=== PATIENT | female | born 1970 | race Hispanic/Latino ===

== ENCOUNTER 2016-07-23 21:59 | Inpatient (IN) | payer OTHER ==
--- NOTE | 2016-07-23 22:37 | ED PDOC ---
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 Patient being followed by Dr. Finnegan podiatry; had MRI which showed torn ligaments and stress fracture, was placed in soft cast and given Percocet and prednisone for pain/swelling. Patient was instructed by Dr. Finnegan to removed soft case over the weekend because of swelling and increased pain; patient notes pain to have worsened since then; with associated redness. Denies fever, nausea/vomiting, chest pain, shortness of breath, palpitations, calf pain/swelling. <Hemalatha Hayward - Last Filed: 07/24/16 04:52> Time Seen by Provider: 07/23/16 22:25 Chief Complaint (Nursing): Lower Extremity Problem/Injury Past Medical History Vital Signs: Last Vital Signs Temp 99.9 F H 07/23/16 22:04 Pulse 97 H 07/23/16 22:04 Resp 07/23/16 22:04 BP 139/92 H 07/23/16 22:04 Pulse Ox 95 07/24/16 03:35 <Gianni Botello Y - Last Filed: 07/24/16 04:21> Reviewed: Historical Data, Nursing Documentation, Vital Signs Vital Signs: Last Vital Signs Temp 99.9 F H 07/23/16 22:04 Pulse 97 H 07/23/16 22:04 Resp 07/23/16 22:04 BP 139/92 H 07/23/16 22:04 Pulse Ox 95 07/23/16 22:04 - Medical History PMH: Hypothyroidism Other PMH: Sarpy's - Surgical History Other surgeries: right ACL repair. foot sx - Family History Family History: States: Unknown Family Hx - Living Arrangements Living Arrangements: With Family <Hemalatha Hayward - Last Filed: 07/24/16 04:52> - Home Medications Home Medications: Ambulatory Orders Medication Instructions Recorded Dexamethasone [Decadron] 1 mg PO DAILY 07/24/16 Fludrocortisone [Florinef] 0.1 mg PO DAILY 07/24/16 Levothyroxine Sodium 125 mcg PO DAILY 07/24/16 [Levothyroxine Sodium] predniSONE [predniSONE Tab] 20 mg PO DAILY 07/24/16 - Allergies Allergies/Adverse Reactions: Allergies Allergy/AdvReac Type Severity Reaction Status Date / Time No Known Allergies Allergy Verified 07/23/16 22:04 Review of Systems ROS Statement: Except As Marked, All Systems Reviewed And Found Negative Musculoskeletal: Positive for: Foot Pain (left ankle) <Hemalatha Hayward C - Last Filed: 07/24/16 04:52> Physical Exam - Reviewed Nursing Documentation Reviewed: Yes Vital Signs Reviewed: Yes - Physical Exam Appears: Positive for: Well, Non-toxic, Uncomfortable Head Exam: Positive for: ATRAUMATIC, NORMAL INSPECTION, NORMOCEPHALIC Skin: Positive for: Normal Color Eye Exam: Positive for: Normal appearance ENT: Positive for: Normal ENT Inspection Cardiovascular/Chest: Positive for: Regular Rate, Rhythm Respiratory: Positive for: Normal Breath Sounds Extremity: Positive for: Pedal Edema (left with localized worsening swelling with redness, discoloration medial malleolus. Distal NV, motor intact), Capillary Refill. Negative for: Calf Tenderness Neurologic/Psych: Positive for: Alert, Oriented. Negative for: Motor/Sensory Deficits <Hemalatha Hayward C - Last Filed: 07/24/16 04:52> - Laboratory Results Result Diagrams: 07/23/16 22:35 07/23/16 22:50 <Gianni Botello Y - Last Filed: 07/24/16 04:21> - Laboratory Results Result Diagrams: 07/23/16 22:35 07/23/16 22:50 - ECG ECG: Positive for: Viewed By Vt (reviewed by ED attending) ECG Rhythm: Positive for: Sinus Rhythm O2 Sat by Pulse Oximetry: 95 - Radiology X-Ray: Viewed By Me X-Ray Interpretation: No Acute Disease - Other Rad xray left ankle X-Ray: Viewed By Vt X-Ray Interpretation: no acute findings xray left foot X-Ray: Viewed By Vt X-Ray Interpretation: no acute findings - Progress ED Course And Treament: labs, xray's, IV morphine Patient evaluated by podiatry resident on-call; will admit. IV rocephin, IV vanco ordered EXAM: US Duplex Left Lower Extremity Veins CLINICAL HISTORY: 46 years old, female; Pain; Leg, lower; Left; Patient HX: Lt ankle pain; Additional info: R/O dvt TECHNIQUE: Real-time ultrasound scan of the veins of the left lower extremity with color Doppler flow, spectral waveform analysis and compression. COMPARISON: No relevant prior studies available. FINDINGS: Deep veins: Unremarkable. No DVT in the common femoral, femoral, proximal deep femoral or popliteal veins. The veins are compressible with normal color flow and augmentation. Superficial veins: Unremarkable. No thrombus in the visualized greater saphenous vein. Soft tissues: No acute findings. No popliteal cyst. IMPRESSION: Normal left lower extremity duplex venous ultrasound. Left pedal pulses noted via doppler <Hemalatha Hayward - Last Filed: 07/24/16 04:52> Medical Decision Making Medical Decision Making: I evaluated the patient who has area of swelling and infection around left ankle. Spoke with podiatry resident who spoke to attending (Dr. Turner) who does not think symptoms are due to compartment syndrome, but is concerned about possible septic joint. Will not be able to obtain MRI and arterial duplex until tomorrow so IV antibiotics will be continued and patient will be admitted. <Gianni Botello Y - Last Filed: 07/24/16 04:21> Disposition <Gianni Botello Y - Last Filed: 07/24/16 04:21> - Patient ED Disposition Is Patient to be Admitted: Yes - Disposition Disposition Time: 02:45 <Hemalatha Hayward - Last Filed: 07/24/16 04:52> - Clinical Impression Clinical Impression: Left ankle swelling, Left ankle pain, Septic arthritis - Disposition Condition: FAIR
[2016-07-23 22:43] LABS: BASO # 0.1 K/uL (0.0-0.2); BASO % 0.5 % (0.0-2.0); EOS # 0.1 K/uL (0.0-0.7); EOS % 0.3 % (0.0-4.0); HEMATOCRIT 37.9 % (34.0-47.0); LYMPH # 3.2 K/uL (1.0-4.3); LYMPH % 15.5 % (20.0-40.0); MEAN CELL VOLUME 101.5 fl (81.0-99.0); MEAN CORPUSCULAR HEMOGLOBIN 34.6 pg (27.0-31.0); MEAN PLATELET VOLUME 7.4 fl (7.2-11.7); MONO # 1.3 K/uL (0.0-0.8); MONO % 6.2 % (0.0-10.0); NEUT # 16.1 K/uL (1.8-7.0); NEUT % 77.5 % (50.0-75.0); RED CELL DISTRIBUTION WIDTH 13.3 % (11.5-14.5); WHITE BLOOD COUNT 20.7 K/uL (4.8-10.8)
[2016-07-23 23:05] LABS: ALB/GLOB RATIO 1.1 (1.0-2.1); ALKALINE PHOSPHATASE 82 U/L (38-126); ALT/SGPT 30 U/L (9-52); AST/SGOT 30 U/L (14-36); BILIRUBIN,TOTAL 0.1 mg/dl (0.2-1.3); BLOOD UREA NITROGEN 24 mg/dl (7-17); CALCIUM 9.9 mg/dL (8.4-10.2); CARBON DIOXIDE 23 mmol/L (22-30); CHLORIDE 103 mmol/L (98-107); GFR AFRICAN-AMERICAN > 60; GLUCOSE,RANDOM 178 mg/dL (65-105); POTASSIUM 4.1 MMOL/L (3.6-5.0); SODIUM 139 mmol/l (132-148); TOTAL PROTEIN 7.8 G/DL (6.3-8.2)
--- NOTE | 2016-07-24 00:57 | CP.PCM.CON ---
History of Present Illness - History of Present Illness History of Present Illness: PODIATRY CONSULT NOTE 46 y/o female brought in by EMS for left ankle pain going on a total of 10 days. 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 Pt states that 10 days ago, absent notable traumatic incident she developed mild pain to left ankle. MRI was taken, which showed partial tears of medial ligaments and a tibial stress fracture. Was placed in soft cast and given Percocet for pain. Patient was instructed by Dr. Finnegan to removed soft case over the weekend because of swelling and increased pain, at this time the pt noted focal point of bruising along medial ankle. Pt prescribed prednisone which reduced left leg and foot edema, though focal bruising increased. Patient notes pain to have worsened since then; with increase in associated redness, pain no a reported sharp, persistne, and throbbing 10/10 pain, which prompted her to seek emergent medical attention. Pain is not well controlled at this time. Pt reports recent nausea while on outpatient Percocet and reports occasional feeling of feverishness. Denies recent vomiting, chest pain, shortness of breath, palpitations, or calf pain and swelling. PMH: Addisons's disease PSH: B/L bunion & HT, R-ACL repair, tonsillectomy All: NKDA Social Hx: , homed, Admits to 1 pack a day smoking, admits to marijuana use. Meds: Dexamethasone PO, Levothroxine, Prednisone Past Patient History - ENDOCRINE/METABOLIC Hx Hypothyroidism: Yes Meds Allergies/Adverse Reactions: Allergies Allergy/AdvReac Type Severity Reaction Status Date / Time No Known Allergies Allergy Verified 07/23/16 22:04 Physical Exam - Constitutional Appears: Non-toxic, No Acute Distress - Extremities Exam Extremities exam: Positive for: calf tenderness, pedal edema Additional comments: Left leg focused. VASC: DP and Pt pulses are non-palpable secondary to edema. Capillary refill time noted to all 5 digits to be <3 seconds. Significant non-pitting edema noted extending from proximal level of ankle joint to distal digits. Mild increased callor to left lower leg and foot. DERM: Ankle joint and rearfoot shows erythema, with moderate focal points at level of both malleoli, medial greater than lateral. Medial malleoli has focal point of ecchymosis. Skin is taut to foot and ankle. No open wound, hyperpigmentations, or macerations noted. Well healed hallux and 2nd digit cicatrix sites noted. NERUO: Protective sensation is grossly intact. ORTHO: Minor passive ankle joint ROM noted, graded 4/5, weakended to to severe edema and guarding. No gross deformities noted. Pain illicited on palpation of malleoli and anterior ankle joint. Pain on attempted motion of foot complex, extending into digits on potential active ROM. - Neurological Exam Neurological exam: Alert, Oriented x3 - Psychiatric Exam Psychiatric exam: Anxious, Normal Affect Results - Vital Signs Recent Vital Signs: Last Vital Signs Temp 99.9 F H 07/23/16 22:04 Pulse 97 H 07/23/16 22:04 Resp 16 07/23/16 22:04 BP 139/92 H 07/23/16 22:04 Pulse Ox 95 07/23/16 23:41 - Labs Result Diagrams: 07/23/16 22:35 07/23/16 22:50 Labs: Laboratory Results - last 24 hr 07/23/16 07/23/16 07/23/16 22:35 22:50 22:50 WBC 20.7 H RBC 3.73 L Hgb 12.9 Hct 37.9 MCV 101.5 H MCH 34.6 H MCHC 34.0 RDW 13.3 Plt Count 549 H MPV 7.4 Neut % (Auto) 77.5 H Lymph % (Auto) 15.5 L [place] % (Auto) 6.2 Eos % (Auto) 0.3 Baso % (Auto) 0.5 Neut # 16.1 H Lymph # 3.2 [place] # 1.3 H Eos # 0.1 Baso # 0.1 Sodium 139 Potassium 4.1 Chloride 103 Carbon Dioxide 23 Anion Gap 17 BUN 24 H Creatinine 0.6 L Est GFR ( Amer) > 60 Est GFR (Non-Af Amer) > 60 Random Glucose 178 H Lactic Acid 2.2 H Calcium 9.9 Total Bilirubin 0.1 L AST 30 ALT 30 Alkaline Phosphatase 82 Total Protein 7.8 Albumin 4.0 Globulin 3.8 Albumin/Globulin Ratio 1.1 Assessment & Plan - Assessment and Plan (Free Text) Assessment: Left ankle edema and intractable pain, etiology unknown. ( Full work-up to r/o PT tendon rupture vs. septic arthritis) Plan: Pt evaluated and treated. Charts, labs, and vitals reviewed. Afebrile, WBC=20.7 K Discussed in detail with attending, Dr. Turner. X-rays reviewed- unremarkable, noted soft tissue swelling at level of ankle joint. Ankle joint swelling noted. -IV abx started empirically, for suspected joint sepsis. -MRI- ordered of left foot and ankle -Duplex arterial and venous studies ordered. -Pt admitted. -Pain control -Pt to remain non-weight bearing to left Leg. -Ice and Elevate as needed. Podiatry will continue to follow pt while inhouse. - Date & Time Date: 07/24/16 Time: 01:40
[2016-07-24] MEDS ORDERED: Piperacillin/Tazobact 3.375 GM in Sodium Chloride 0.9% 100 ML IV ONE (01:39)
--- NOTE | 2016-07-24 02:44 | US ---
EXAM: US Duplex Left Lower Extremity Veins CLINICAL HISTORY: 46 years old, female; Pain; Leg, lower; Left; Patient HX: Lt ankle pain; Additional info: R/O dvt TECHNIQUE: Real-time ultrasound scan of the veins of the left lower extremity with color Doppler flow, spectral waveform analysis and compression. COMPARISON: No relevant prior studies available. FINDINGS: Deep veins: Unremarkable. No DVT in the common femoral, femoral, proximal deep femoral or popliteal veins. The veins are compressible with normal color flow and augmentation. Superficial veins: Unremarkable. No thrombus in the visualized greater saphenous vein. Soft tissues: No acute findings. No popliteal cyst. IMPRESSION: Normal left lower extremity duplex venous ultrasound.
--- NOTE | 2016-07-24 03:21 | CP.PCM.HP ---
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 Patient is being followed by podiatry Dr Finnegan. An MRI in office revealed partial tears of medial ligaments and a tibial stress fracture. Patient states worsening pain, bruising, swelling and erythema. States being given prednisone and percocet as outpatient by podiatry which is causing nausea. Also states feeling subjective fevers. Denies recent vomiting, chest pain, shortness of breath, palpitations, or calf pain. PMH: Addisons's disease, hypothyroidism PSH: B/L bunion & HT, R-ACL repair, tonsillectomy Social Hx: PPD tobacco use, intermittent marijuana use. Allergies: NKDA Meds: Dexamethasone PO, Levothroxine, Prednisone Present on Admission - Present on Admission Any Indicators Present on Admission: No Past Patient History - Past Social History Smoking Status: Heavy Smoker > 10 Cigarettes Daily - ENDOCRINE/METABOLIC Hx Hypothyroidism: Yes - PSYCHIATRIC Hx Substance Use: No Meds Allergies/Adverse Reactions: Allergies Allergy/AdvReac Type Severity Reaction Status Date / Time No Known Allergies Allergy Verified 07/23/16 22:04 Physical Exam - Head Exam Head Exam: ATRAUMATIC - Eye Exam Eye Exam: EOMI Pupil Exam: PERRL - ENT Exam ENT Exam: Mucous Membranes Moist - Neck Exam Neck exam: Positive for: Full Rom - Respiratory Exam Respiratory Exam: Clear to Auscultation Bilateral - Cardiovascular Exam Cardiovascular Exam: +S1, +S2 - GI/Abdominal Exam GI & Abdominal Exam: Normal Bowel Sounds, Soft. absent: Tenderness - Extremities Exam Additional comments: erythema, edema and ecchymosis of left ankle and dorsal foot ecchymotic L medial malleolus with significant swellling. Able to move distal toes limited ROM, sensation is intact No pedal pulses felt secondary to edema ankle joint is warm with significant erythema Results - Vital Signs Recent Vital Signs: Last Vital Signs Temp 99.9 F H 07/23/16 22:04 Pulse 97 H 07/23/16 22:04 Resp 16 07/23/16 22:04 BP 139/92 H 07/23/16 22:04 Pulse Ox 95 07/23/16 23:41 - Labs Result Diagrams: 07/23/16 22:35 05/08/17 22:50 Labs: Laboratory Results - last 24 hr 07/23/16 07/23/16 07/23/16 22:35 22:50 22:50 WBC 20.7 H RBC 3.73 L Hgb 12.9 Hct 37.9 MCV 101.5 H MCH 34.6 H MCHC 34.0 RDW 13.3 Plt Count 549 H MPV 7.4 Neut % (Auto) 77.5 H Lymph % (Auto) 15.5 L [place] % (Auto) 6.2 Eos % (Auto) 0.3 Baso % (Auto) 0.5 Neut # 16.1 H Lymph # 3.2 [place] # 1.3 H Eos # 0.1 Baso # 0.1 Sodium 139 Potassium 4.1 Chloride 103 Carbon Dioxide 23 Anion Gap 17 BUN 24 H Creatinine 0.6 L Est GFR ( Amer) > 60 Est GFR (Non-Af Amer) > 60 Random Glucose 178 H Lactic Acid 2.2 H Calcium 9.9 Total Bilirubin 0.1 L AST 30 ALT 30 Alkaline Phosphatase 82 Total Protein 7.8 Albumin 4.0 Globulin 3.8 Albumin/Globulin Ratio 1.1 Assessment & Plan - Assessment and Plan (Free Text) Plan: 46 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 Left Ankle Pain s/p trauma possible left septic joint Patient does not currently meet the criteria for sepsis Afebrile currently, slightly tachycardic Leukocytosis 20.7 ( patient also on PO steroids because of nick's disease), lactic acid 2.2 X-rays reviewed- unremarkable, noted soft tissue swelling at level of ankle joint. Podiatry consulted, plan as follows: IV Vanc and Zosyn started empirically, for suspected joint infection MRI- ordered of left foot and ankle in AM ; Duplex arterial and venous studies in AM RICE treatment for now pain control CBC, CMP, ESR, CRP in AM Wheatland's Disease continue with PO dexamethasone and flucortef Hypothyroidism c/w levothyroxine Ppx DVT - TEDs for now
[2016-07-24] MEDS ORDERED: Piperacillin/Tazobact 3.375 gm Inj IVPB ONE (03:41)
[2016-07-24 05:01] LABS: ALKALINE PHOSPHATASE 78 U/L (38-126); ALT/SGPT 31 U/L (9-52); AST/SGOT 22 U/L (14-36); CALCIUM 9.1 mg/dL (8.4-10.2); CARBON DIOXIDE 25 mmol/L (22-30); CHLORIDE 101 mmol/L (98-107); GFR AFRICAN-AMERICAN > 60; GLUCOSE,RANDOM 119 mg/dL (65-105); POTASSIUM 3.9 MMOL/L (3.6-5.0); SODIUM 139 mmol/l (132-148)
[2016-07-24 05:05] LABS: ALB/GLOB RATIO 0.9 (1.0-2.1); BILIRUBIN,TOTAL 0.3 mg/dl (0.2-1.3); BLOOD UREA NITROGEN 22 mg/dl (7-17); TOTAL PROTEIN 7.3 G/DL (6.3-8.2)
[2016-07-24] MEDS: Levothyroxine 125 MCG TAB PO SCH (06:41)
[2016-07-24 07:53] LABS: BASO # 0.3 K/uL (0.0-0.2); BASO % 1.2 % (0.0-2.0); EOS # 0.1 K/uL (0.0-0.7); EOS % 0.3 % (0.0-4.0); HEMATOCRIT 36.6 % (34.0-47.0); LYMPH # 3.7 K/uL (1.0-4.3); LYMPH % 16.8 % (20.0-40.0); MEAN CELL VOLUME 101.1 fl (81.0-99.0); MEAN CORPUSCULAR HEMOGLOBIN 33.6 pg (27.0-31.0); MEAN CORPUSCULAR HGB CONC 33.2 g/dL (33.0-37.0); MEAN PLATELET VOLUME 7.3 fl (7.2-11.7); MONO # 1.9 K/uL (0.0-0.8); MONO % 8.6 % (0.0-10.0); NEUT # 15.9 K/uL (1.8-7.0); NEUT % 73.1 % (50.0-75.0); RED CELL DISTRIBUTION WIDTH 13.6 % (11.5-14.5); WHITE BLOOD COUNT 21.8 K/uL (4.8-10.8)
--- NOTE | 2016-07-24 08:05 | CP.PCM.PN ---
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 Patient is sleepy and tired. States that ankle pain has improved and that she is tired after all the hours that she was in pain yesterday. Denies vomiting, nausea, CP, SOB, palpitation. Labs and study results reviewed this morning. Objective - Vital Signs/Intake and Output Vital Signs (last 24 hours): Temp Pulse Resp BP Pulse Ox 99.1 F 78 18 116/77 94 L 07/24/16 05:32 07/24/16 05:32 07/24/16 05:32 07/24/16 05:32 07/24/16 05:32 - Medications Medications: Current Medications Dexamethasone (Decadron) 1 mg PO DAILY [facility] Fludrocortisone Acetate (Florinef) 0.1 mg PO DAILY [facility] Vancomycin HCl 1 gm/ Sodium (Chloride) 250 mls @ 166.667 mls/hr IVPB DAILY@ 0200 [facility] Piperacillin Sod/Tazobactam (Sod 3.375 gm/ Sodium Chloride) 100 mls @ 100 mls/ hr IVPB Q8 [facility] Ketorolac Tromethamine (Toradol) 15 mg IM Q6 PRN PRN Reason: Pain, Mild (1-3) Last Admin: 07/24/16 04:18 Dose: 15 mg Levothyroxine Sodium (Synthroid) 125 mcg PO DAILY@0630 [facility] Last Admin: 07/24/16 06:41 Dose: 125 mcg Morphine Sulfate (Morphine) 4 mg IVP Q4 PRN PRN Reason: Pain, severe (8-10) Morphine Sulfate (Morphine) 2 mg IVP Q4 PRN PRN Reason: Pain, moderate (4-7) - Labs Labs: 07/24/16 04:44 07/24/16 04:44 - Constitutional Appears: Non-toxic - Head Exam Head Exam: NORMOCEPHALIC - Eye Exam Eye Exam: PERRL - ENT Exam ENT Exam: Mucous Membranes Moist - Respiratory Exam Respiratory Exam: Clear to Ausculation Bilateral, NORMAL BREATHING PATTERN - Cardiovascular Exam Cardiovascular Exam: REGULAR RHYTHM, +S1, +S2. absent: Gallop - GI/Abdominal Exam GI & Abdominal Exam: Soft, Normal Bowel Sounds - Extremities Exam Extremities Exam: Normal Capillary Refill. absent: Calf Tenderness Additional comments: redness with swelling surrounding an area of ecchymosis in L/medial maleoli. Area is very tender. Redness extends above the ankle anterior/lateral aspect but quickly fades into the leg. 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
[2016-07-24] MEDS: Piperacillin/Tazobact 3.375 GM in Sodium Chloride 0.9% 100 ML IVPB SCH ×2 (08:24→16:31)
--- NOTE | 2016-07-24 09:19 | CARD ---
APPROVED REPORT EKG Measurement Heart [id number] <Conclusion> Normal sinus rhythm Low voltage QRS Cannot rule out Anterior infarct, age undetermined-not diagnostic Abnormal ECG
--- NOTE | 2016-07-24 10:48 | RAD ---
PROCEDURE: Left Foot Radiographs. HISTORY: pain, redness, swelling COMPARISON: None. FINDINGS: BONES: Status post hallux valgus repair. Procedural date relative to the study unknown. JOINTS: Normal. SOFT TISSUES: Soft tissue swelling ventral and plantar aspects of the foot best seen on the lateral view. OTHER FINDINGS: None. IMPRESSION: Soft tissue swelling without acute articular or osseous abnormality.
--- NOTE | 2016-07-24 11:35 | RAD ---
HISTORY: admit COMPARISON: Er FINDINGS: LUNGS: No active pulmonary disease. PLEURA: No significant pleural effusion identified, no pneumothorax apparent. CARDIOVASCULAR: Normal. OSSEOUS STRUCTURES: No significant abnormalities. VISUALIZED UPPER ABDOMEN: Normal. OTHER FINDINGS: None. IMPRESSION: No active disease.
--- NOTE | 2016-07-24 14:10 | RAD ---
PROCEDURE: Left Ankle Radiographs. HISTORY: pain, redness, swelling . No antecedent history of trauma provided. COMPARISON: None FINDINGS: BONES: No acute fracture. JOINTS: Normal. No osteoarthritis. Ankle mortise maintained. Talar dome intact SOFT TISSUES: Extent DIS soft tissue swelling laterally and posteriorly, to lesser extent anteriorly. No distal tibial or fibular fracture identified. OTHER FINDINGS: None. IMPRESSION: Soft tissue swelling without acute articular or osseous abnormality.
--- NOTE | 2016-07-24 14:13 | US ---
PROCEDURE: Duplex ultrasound of the left lower extremity arteries. HISTORY: r/o arterial compromise COMPARISON: None available. TECHNIQUE: Grayscale and duplex Doppler evaluation of the left common femoral, superficial femoral, popliteal, posterior tibial and dorsalis pedis arteries was performed.. FINDINGS: COMMON FEMORAL ARTERY: Patent. Maximal flow velocity of 97.2 cm/s. SUPERFICIAL FEMORAL ARTERY:Patent. Maximal flow velocity of 123.3 cm/s. POPLITEAL ARTERY:Patent. Maximal flow velocity of 68.3 cm/s. POSTERIOR TIBIAL ARTERY: Patent. Maximal flow velocity of 79.6 cm/s. DORSALIS PEDIS ARTERY: Patent. Maximal flow velocity of 92.6 cm/s. OTHER FINDINGS: None. IMPRESSION: Normal Duplex Doppler of the left lower extremity arteries.
[2016-07-25] MEDS: Piperacillin/Tazobact 3.375 GM in Sodium Chloride 0.9% 100 ML IVPB SCH ×3 (00:24→17:34)
[2016-07-25] MEDS: Levothyroxine 125 MCG TAB PO SCH (05:58)
--- NOTE | 2016-07-25 06:21 | CP.PCM.PN ---
Subjective - Date & Time of Evaluation Date of Evaluation: 07/25/16 Time of Evaluation: 10:00 - Subjective Subjective: 46 y/o female seen concerning right leg edema and potential focal hematoma. Pt is much improved since yesterday, with edema improved, and medial erythema decreasing in intensity, though central portion color intensity remains the same. Pt reports pain medication is keeping breakthrough pain well controlled. Pt denies recent f/c/cp/sob/n/v. Objective - Vital Signs/Intake and Output Vital Signs (last 24 hours): Temp Pulse Resp BP Pulse Ox 98.4 F 72 19 98/68 L 94 L 07/25/16 00:34 07/25/16 00:34 07/25/16 00:34 07/25/16 00:34 07/25/16 00:34 - Medications Medications: Current Medications Dexamethasone (Decadron) 1 mg PO DAILY [facility] Last Admin: 07/24/16 08:23 Dose: 1 mg Fludrocortisone Acetate (Florinef) 0.1 mg PO DAILY [facility] Last Admin: 07/24/16 08:23 Dose: 0.1 mg Vancomycin HCl 1 gm/ Sodium (Chloride) 250 mls @ 166.667 mls/hr IVPB DAILY@ 0200 [facility] Last Admin: 07/25/16 01:57 Dose: 166.667 mls/hr Piperacillin Sod/Tazobactam (Sod 3.375 gm/ Sodium Chloride) 100 mls @ 100 mls/ hr IVPB Q8 [facility] Last Admin: 07/25/16 00:24 Dose: 100 mls/hr Ketorolac Tromethamine (Toradol) 15 mg IM Q6 PRN PRN Reason: Pain, Mild (1-3) Last Admin: 07/25/16 05:43 Dose: 15 mg Levothyroxine Sodium (Synthroid) 125 mcg PO DAILY@0630 [facility] Last Admin: 07/25/16 05:58 Dose: 125 mcg Morphine Sulfate (Morphine) 4 mg IVP Q4 PRN PRN Reason: Pain, severe (8-10) Last Admin: 07/25/16 03:12 Dose: 4 mg Morphine Sulfate (Morphine) 2 mg IVP Q4 PRN PRN Reason: Pain, moderate (4-7) Last Admin: 07/24/16 21:16 Dose: 2 mg - Labs Labs: 07/24/16 04:44 07/24/16 04:44 - Constitutional Appears: Well, Non-toxic, No Acute Distress - Extremities Exam Additional comments: Left leg focused. VASC: DP and Pt pulses are non-palpable secondary to edema. Capillary refill time noted to all 5 digits to be <3 seconds. Moderate non-pitting edema noted extending from proximal level of ankle joint to distal digits. Mild callor to left lower leg and foot. DERM: Ankle joint and rearfoot shows erythema, with moderate focal points at level of both malleoli, medial greater than lateral. Medial malleoli has focal point of ecchymosis, whose central portions are tender to palpation. Skin is tension to foot and ankle rediuced, returns if relaxed skin tension talita of proximal 1/2 of leg and distal lateral midfoot. No open wounds, hyper- pigmentations, or macerations noted. Well healed hallux and 2nd digit cicatrix sites noted. NERUO: Protective sensation is grossly intact. ORTHO: Minor passive ankle joint ROM noted, graded 5/5, with noted guarding. No gross deformities noted. - Neurological Exam Neurological Exam: Alert, Awake, Oriented x3 - Psychiatric Exam Psychiatric exam: Normal Affect, Normal Mood Assessment and Plan - Assessment and Plan (Free Text) Assessment: Left ankle edema and intractable pain, etiology unknown. Plan: Pt evaluated and treated. Charts, labs, and vitals reviewed. Afebrile, WBC=20.7 K Discussed in detail with attending, Dr. Finnegan, who endorsed the treatment plan and has been made aware of results of follwoing procedure. -Pain control -Pt to remain non-weight bearing to left Leg. -Pt consented to bedside incision, drainage, and aspiration for abscess/ hematoma. Performed under aseptic conditions central core decompression and aspiration of hematoma after injecting 5cc of 1% lidocaine plain in a local block type fashion without incident. 1 total cc of aspirate collected, hematougenous in appearance, and was divided into 2 cultures jars for fluid analysis and culture. A 1.5 cm longitudinal incision was made overlying core to allow further drainage with care to avoid neuro-vascular structures, immediate soft tissue planes were explored using curved hemostat. 8 total cc's of fluid produced and expunged. Deficit dressed with sterile saline soaked 4x4 gauze, abd , and kerlix. -Fluid culture sent for microbiology and fluid analysis. -Continue to Ice and Elevate as needed. - Potential to take pt to OR tomorrow evening for further incision and drainage. - Medical clearance requested. - 1 time doses of Morphine 2mg IV and Ambien 5mg PO ordered post-procedure. Podiatry will continue to follow while inhouse.
[2016-07-25 07:03] LABS: HEMATOCRIT 37.3 % (34.0-47.0); MEAN CELL VOLUME 101.9 fl (81.0-99.0); MEAN CORPUSCULAR HEMOGLOBIN 33.2 pg (27.0-31.0); MEAN CORPUSCULAR HGB CONC 32.6 g/dL (33.0-37.0); RED CELL DISTRIBUTION WIDTH 13.9 % (11.5-14.5); WHITE BLOOD COUNT 17.6 K/uL (4.8-10.8)
[2016-07-25 07:09] LABS: BLOOD UREA NITROGEN 28 mg/dl (7-17); CALCIUM 8.8 mg/dL (8.4-10.2); CARBON DIOXIDE 28 mmol/L (22-30); CHLORIDE 102 mmol/L (98-107); GFR AFRICAN-AMERICAN > 60; GLUCOSE,RANDOM 99 mg/dL (65-105); POTASSIUM 3.9 MMOL/L (3.6-5.0); SODIUM 141 mmol/l (132-148)
--- NOTE | 2016-07-25 12:15 | CP.PCM.PN ---
Subjective - Date & Time of Evaluation Date of Evaluation: 07/25/16 Time of Evaluation: 07:45 - Subjective Subjective: 46 y/o patient seen at bedside comfortable, not in acute distress. Spent night uneventful. States pain is controlled with pain meds. RN notified that overnight patient asked to be wake up for morphine administration q4h. Patient states her private podiatry reviewed and discussed MRI done 4 days ago as outpatient with her. She denies SOB, CP, palpitations. Patient reports concerns about her steroids dose because every time she is under physical stress(like current situation) she needs more steroids. Private insurance underwriter sales to be contacted. Case discussed with podiatry and ID. 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 Echo ordered. Objective - Vital Signs/Intake and Output Vital Signs (last 24 hours): Temp Pulse Resp BP Pulse Ox 98.9 F 80 20 111/76 94 L 07/25/16 08:08 07/25/16 08:08 07/25/16 08:08 07/25/16 08:08 07/25/16 08:08 - Medications Medications: Current Medications Dexamethasone (Decadron) 1 mg PO DAILY [facility] Last Admin: 07/25/16 09:05 Dose: 1 mg Fludrocortisone Acetate (Florinef) 0.1 mg PO DAILY [facility] Last Admin: 07/25/16 09:05 Dose: 0.1 mg Vancomycin HCl 1 gm/ Sodium (Chloride) 250 mls @ 166.667 mls/hr IVPB DAILY@ 0200 [facility] Last Admin: 07/25/16 01:57 Dose: 166.667 mls/hr Piperacillin Sod/Tazobactam (Sod 3.375 gm/ Sodium Chloride) 100 mls @ 100 mls/ hr IVPB Q8 [facility] Last Admin: 07/25/16 09:06 Dose: 100 mls/hr Ketorolac Tromethamine (Toradol) 15 mg IM Q6 PRN PRN Reason: Pain, moderate (4-7) Levothyroxine Sodium (Synthroid) 125 mcg PO DAILY@0630 [facility] Last Admin: 07/25/16 05:58 Dose: 125 mcg Morphine Sulfate (Morphine) 2 mg IVP Q4 PRN PRN Reason: Pain, severe (8-10) - Labs Labs: 07/25/16 05:50 05/10/17 05:50 - Head Exam Head Exam: NORMAL INSPECTION, NORMOCEPHALIC - Eye Exam Pupil Exam: PERRL - Respiratory Exam Respiratory Exam: Clear to Ausculation Bilateral, NORMAL BREATHING PATTERN - Cardiovascular Exam Cardiovascular Exam: REGULAR RHYTHM, RRR, +S1, +S2. absent: Murmur - GI/Abdominal Exam GI & Abdominal Exam: Soft, Normal Bowel Sounds - Extremities Exam Extremities Exam: Joint Swelling, Normal Capillary Refill, Pedal Edema, Tenderness. absent: Calf Tenderness Additional comments: L/leg cellulitis surrounding ecchymotic area around medial maleoli. 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 Podiatry consulted, plan as follows: IV Vanc and Zosyn started empirically, for suspected joint infection MRI- cancelled because patient underwent MRI as outpatient 4 days ago according to her. Report not available. As per Podiatry: No Osteomyelitis or abscess formation Uric Acid WNL 3.9 RICE treatment pain control Bacteremia BCx growing gram + cocci COnt IV abx as above PICC line ordered Will cont following ID recs Repeat BCx ordered Abnormal lab hematology elevated MCV, MCH, Plt. Low RBC F/U vit b12, folate, hep panel, PT,INR, CRP F/U repeat CBC tomorrow Virgil's Disease continue with PO dexamethasone and flucortef will consider increasing steroids dose. will cont monitoring Hypothyroidism c/w levothyroxine Prophylactic measures Ppx DVT - TEDs for now
--- NOTE | 2016-07-25 13:40 | CARD ---
APPROVED REPORT EKG Measurement Heart [id number] [place] [id number] <Conclusion> Normal sinus rhythm Normal ECG
--- NOTE | 2016-07-25 17:19 | CP.PCM.PCO ---
Assessment/Plan - Assessment and Plan (Free Text) Assessment: I saw and evaluated the patient. I discussed the case with the resident and agree with the findings and plan as documented in the resident's note. Pt says usually her sterodi dose is increased in terms of stress. Hossein increase and speak to her rheu. DEXA has always been wnl per pt. Pain management consult called. Spoke with ID will have PICC line place. Will probably need IV abx for a few weeks.
--- NOTE | 2016-07-25 18:11 | CARD ---
APPROVED REPORT EXAM: Two-dimensional and M-mode echocardiogram with Doppler and color Doppler. Other Information Quality : AverageRhythm : NSR INDICATION Infection: 2D DIMENSIONS IVSd0.91 (0.7-1.1cm)LVDd4.33 (3.9-5.9cm) PWd0.96 (0.7-1.1cm)IVSs0.93 (0.8-1.2cm) LVDs3.39 (2.5-4.0cm)FS (%) 21.6 % PWs1.37 (0.8-1.2cm) M-Mode DIMENSIONS Left Atrium (MM)3.16 (2.5-4.0cm)IVSd0.92 (0.7-1.1cm) Aortic Root2.70 (2.2-3.7cm)LVDd5.08 (4.0-5.6cm) Aortic Cusp Exc.1.60 (1.5-2.0cm)PWd1.17 (0.7-1.1cm) IVSs1.71 cmFS (%) 34 % LVDs3.38 (2.0-3.8cm)PWs1.71 cm Aortic Valve AoV Peak Zkiumzvt654.4cm/[place] Peak GR.16mmHgLVOT Peak Ylcdfikk743.7cm/s Mitral Valve MV E Vvsdjuey45.8cm/sMV DECEL PUYP522oxTB A Uqcvvnfs34.8cm/s MV UQS33qfW/A ratio0.9MVA (PHT)2.35cm2 TDI Lateral E' Peak V11.00cm/sMedial E' Peak V9.86cm/sE/Lateral E'7.1 E/Medial E'7.9 Pulmonary Valve PV Peak Ncjkhlca978.2cm/s LEFT VENTRICLE The left ventricle is normal size. There is normal left ventricular wall thickness. The left ventricular function is normal. The left ventricular ejection fraction is - 70%. There is normal LV segmental wall motion. Transmitral Doppler flow pattern is Grade I-abnormal relaxation pattern. No left ventricle thrombus noted on this study. There is no ventricular septal defect visualized. There is no left ventricular aneurysm. There is no mass noted in the left ventricle. RIGHT VENTRICLE The right ventricle is normal size. There is normal right ventricular wall thickness. The right ventricular systolic function is normal. ATRIA The left atrium size is normal. There is no thrombus suspected in the left atrium. The right atrium size is normal. The interatrial septum is intact with no evidence for an atrial septal defect. AORTIC VALVE The aortic valve is normal in structure and function. No aortic regurgitation is present. There is no aortic valvular stenosis. There is no aortic valvular vegetation. MITRAL VALVE The mitral valve is normal in structure and function. There is no evidence of mitral valve prolapse. There is no mitral valve stenosis. Mitral regurgitation is trace. TRICUSPID VALVE The tricuspid valve is normal in structure and function. There is no tricuspid valve regurgitation noted. There is no tricuspid valve prolapse or vegetation. There is no tricuspid valve stenosis. PULMONIC VALVE The pulmonary valve is normal in structure and function. There is no pulmonic valvular regurgitation. GREAT VESSELS The aortic root is normal in size. The IVC is normal in size and collapses >50% with inspiration. PERICARDIAL EFFUSION The pericardium appears normal. There is no pleural effusion. <Conclusion> The study was only of fair quality. The left ventricle is normal in size and wall thickness. The left ventricular function is normal. The left ventricular ejection fraction is - 70%. The left atrium, right ventricle and right atrium are normal in size. The mitral, aortic and tricuspid valves are normal. No valvular vegetations were seen. There is trace mitral regurgitation.
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
[2016-07-25] MEDS ORDERED: Lidocaine 1% Inj (20ml) IJ ONE (22:07)
[2016-07-25] MEDS ORDERED: Lidocaine/Prilocaine CREAM 5GM TP ONE (22:23)
[2016-07-26] MEDS: Piperacillin/Tazobact 3.375 GM in Sodium Chloride 0.9% 100 ML IVPB SCH ×3 (00:12→17:32)
[2016-07-26] MEDS: Levothyroxine 125 MCG TAB PO SCH (06:00)
[2016-07-26 06:50] LABS: HEMATOCRIT 35.2 % (34.0-47.0); MEAN CELL VOLUME 101.3 fl (81.0-99.0); MEAN CORPUSCULAR HEMOGLOBIN 33.7 pg (27.0-31.0); MEAN CORPUSCULAR HGB CONC 33.3 g/dL (33.0-37.0); RED CELL DISTRIBUTION WIDTH 13.3 % (11.5-14.5)
[2016-07-26 07:04] LABS: BLOOD UREA NITROGEN 21 mg/dl (7-17); CARBON DIOXIDE 28 mmol/L (22-30); CHLORIDE 104 mmol/L (98-107); GFR AFRICAN-AMERICAN > 60; GLUCOSE,RANDOM 91 mg/dL (65-105); POTASSIUM 4.1 MMOL/L (3.6-5.0); SODIUM 140 mmol/l (132-148)
[2016-07-26 07:35] LABS: THYROID STIMULATING HORMONE 7.14 mIU/ML (0.46-4.68)
[2016-07-26 07:52] LABS: PARTIAL THROMBOPLASTIN TIME 25.3 SECONDS (23.3-32.5)
[2016-07-26] MEDS ORDERED: Oxycodone/Acetaminophen 5/325 mg Tab PO PRN (10:28)
--- NOTE | 2016-07-26 10:34 | CP.PCM.CON ---
History of Present Illness - History of Present Illness History of Present Illness: 46yF admitted for L ankle pain, and will undergo surgery in next day. She has left ankle and foot pain VAS 6-7/10, currently controlled with pain medication. Pain does not radiate and is localized to LLE. She denies chronic use of pain medication, and recently took tramadol for R knee surgery. Her pain is intermittent and sharp and is improved with medication and worsened by movement. Past Patient History - Past Medical History & Family History Past Medical History?: Yes - Past Social History Smoking Status: Heavy Smoker > 10 Cigarettes Daily - CARDIAC Hx Cardiac Disorders: No - PULMONARY Hx Respiratory Disorders: No - NEUROLOGICAL Hx Neurological Disorder: No - HEENT Hx HEENT Problems: No - RENAL Hx Chronic Kidney Disease: No - ENDOCRINE/METABOLIC Hx Hypothyroidism: Yes Other/Comment: addisons disease - HEMATOLOGICAL/ONCOLOGICAL Hx AIDS: No Hx Human Immunodeficiency Virus (HIV): No - INTEGUMENTARY Hx Dermatological Problems: No - MUSCULOSKELETAL/RHEUMATOLOGICAL Hx Musculoskeletal Disorders: No Hx Falls: No - GASTROINTESTINAL Hx Gastrointestinal Disorders: No - GENITOURINARY/GYNECOLOGICAL Hx Genitourinary Disorders: No - PSYCHIATRIC Hx Psychophysiologic Disorder: No Hx Substance Use: Yes (marijuana) - SURGICAL HISTORY Hx Surgeries: No Other/Comment: jeremías bunionectomy/rt alc repair /tonsilectomy - ANESTHESIA Hx Anesthesia: Yes Hx Anesthesia Reactions: No Hx Malignant Hyperthermia: No Has any member of the family had a problem w/ anesthesia?: No Meds Allergies/Adverse Reactions: Allergies Allergy/AdvReac Type Severity Reaction Status Date / Time No Known Allergies Allergy Verified 07/23/16 22:04 - Medications Medications: Current Medications Dexamethasone (Decadron) 1.5 mg PO DAILY [facility] Last Admin: 07/26/16 08:45 Dose: 1.5 mg Fludrocortisone Acetate (Florinef) 0.1 mg PO DAILY [facility] Last Admin: 07/26/16 08:45 Dose: 0.1 mg Piperacillin Sod/Tazobactam (Sod 3.375 gm/ Sodium Chloride) 100 mls @ 100 mls/ hr IVPB Q8 [facility] Last Admin: 07/26/16 08:49 Dose: 100 mls/hr Vancomycin HCl 1 gm/ Sodium (Chloride) 250 mls @ 166.667 mls/hr IVPB Q12 [facility] Last Admin: 07/25/16 22:00 Dose: 166.667 mls/hr Ketorolac Tromethamine (Toradol) 30 mg IVP Q6 PRN PRN Reason: Pain, Mild (1-3) Levothyroxine Sodium (Synthroid) 125 mcg PO DAILY@0630 [facility] Last Admin: 07/26/16 06:00 Dose: 125 mcg Morphine Sulfate (Morphine) 2 mg IVP Q4 PRN PRN Reason: Pain, severe (8-10) Last Admin: 07/26/16 10:13 Dose: 2 mg Oxycodone/Acetaminophen (Percocet 5/325 Mg Tab) 2 tab PO Q6 PRN PRN Reason: Pain, severe (8-10) Stop: 07/29/16 10:29 Pregabalin (Lyrica) 50 mg PO BID [facility] Physical Exam - Constitutional Appears: No Acute Distress - Head Exam Head Exam: ATRAUMATIC - Respiratory Exam Respiratory Exam: Clear to Auscultation Bilateral - Extremities Exam Additional comments: Left foot and ankle dressing c/d/i. Pt can wiggle toes, sensation grossly intact - Neurological Exam Neurological exam: Alert, Oriented x3 Results - Vital Signs Recent Vital Signs: Last Vital Signs Temp 98.2 F 07/26/16 08:56 Pulse 69 07/26/16 08:56 Resp 20 07/26/16 08:56 BP 135/88 07/26/16 08:56 Pulse Ox 97 07/26/16 08:56 - Labs Result Diagrams: 07/26/16 05:45 07/26/16 05:45 Labs: Laboratory Results - last 24 hr 07/25/16 07/26/16 07/26/16 11:50 05:45 05:45 WBC RBC Hgb Hct MCV MCH MCHC RDW Plt Count ESR PT INR APTT Sodium 140 Potassium 4.1 Chloride 104 Carbon Dioxide 28 Anion Gap 12 BUN 21 H Creatinine 0.6 L Est GFR ( Amer) > 60 Est GFR (Non-Af Amer) > 60 Random Glucose 91 Lactic Acid Uric Acid 3.9 Calcium 9.0 Vitamin B12 641 TSH 3rd Generation 7.14 H HIV-1 Ab Rapid Screen Non reactive 07/26/16 07/26/16 07/26/16 05:45 05:45 05:45 WBC 14.0 H RBC 3.48 L Hgb 11.7 L Hct 35.2 MCV 101.3 H MCH 33.7 H MCHC 33.3 RDW 13.3 Plt Count 492 H ESR 112 H PT 10.3 INR 0.99 APTT 25.3 Sodium Potassium Chloride Carbon Dioxide Anion Gap BUN Creatinine Est GFR ( Amer) Est GFR (Non-Af Amer) Random Glucose Lactic Acid 1.5 Uric Acid Calcium Vitamin B12 TSH 3rd Generation HIV-1 Ab Rapid Screen Assessment & Plan - Assessment and Plan (Free Text) Assessment: 46yF with left foot and ankle pain, scheduled for surgery. Pt is comfortable with current pain rx regimen Plan: 1. Wean pain meds as tolerated 2. Pt to go for surgery today or tomorrw 3. Care as per primary team
[2016-07-26] MEDS ORDERED: Enoxaparin 30 mg Syringe SC ONE ×2 (11:15→16:56)
[2016-07-26] MEDS ORDERED: Lidocaine 1% Inj (20ml) ONE (12:13)
--- NOTE | 2016-07-26 12:40 | PCM.SURG1 ---
Surgeon's Initial Post Op Note - Surgeon's Notes Surgeon: Gael Orozco MD Stock Lifter: NONE Type of Anesthesia: Local Pre-Operative Diagnosis: Foot infection Operative Findings: US showed a patent right basilic vein. Post-Operative Diagnosis: Foot infection Operation Performed: Right basilic vein single lumen picc placement, tip in SVC. Length is 35 cm. Specimen/Specimens Removed: NONE Estimated Blood Loss: EBL {In ML}: 2 Blood Products Given: N/A Drains Used: No Drains Post-Op Condition: Fair Date of Surgery/Procedure: 07/26/16 Time of Surgery/Procedure: 12:35
--- NOTE | 2016-07-26 12:41 | CP.PCM.PN ---
Subjective - Date & Time of Evaluation Date of Evaluation: 07/26/16 Time of Evaluation: 06:50 - Subjective Subjective: 46 y/o F admitted for L/ankle cellulitis seen a bedside. Pain controlled with pain meds. Last night I&D was done at bedside by podiatry, patient c/o today and upset about the procedure that why "was done that late in the day". She seems to get upset easily without a good reason. Denies CP, SOB, palpitations, calf pain. Objective - Vital Signs/Intake and Output Vital Signs (last 24 hours): Temp Pulse Resp BP Pulse Ox 99.2 F 78 18 117/76 99 07/26/16 12:16 07/26/16 12:16 07/26/16 12:16 07/26/16 12:16 07/26/16 12:16 - Medications Medications: Current Medications Dexamethasone (Decadron) 1.5 mg PO DAILY [facility] Last Admin: 07/26/16 08:45 Dose: 1.5 mg Fludrocortisone Acetate (Florinef) 0.1 mg PO DAILY [facility] Last Admin: 07/26/16 08:45 Dose: 0.1 mg Piperacillin Sod/Tazobactam (Sod 3.375 gm/ Sodium Chloride) 100 mls @ 100 mls/ hr IVPB Q8 [facility] Last Admin: 07/26/16 08:49 Dose: 100 mls/hr Vancomycin HCl 1 gm/ Sodium (Chloride) 250 mls @ 166.667 mls/hr IVPB Q12 [facility] Last Admin: 07/25/16 22:00 Dose: 166.667 mls/hr Ketorolac Tromethamine (Toradol) 30 mg IVP Q6 PRN PRN Reason: Pain, Mild (1-3) Levothyroxine Sodium (Synthroid) 125 mcg PO DAILY@0630 [facility] Last Admin: 07/26/16 06:00 Dose: 125 mcg Morphine Sulfate (Morphine) 2 mg IVP Q4 PRN PRN Reason: Pain, severe (8-10) Last Admin: 07/26/16 10:13 Dose: 2 mg Oxycodone/Acetaminophen (Percocet 5/325 Mg Tab) 2 tab PO Q6 PRN PRN Reason: Pain, severe (8-10) Stop: 07/29/16 10:29 Pregabalin (Lyrica) 50 mg PO BID [facility] - Labs Labs: 07/26/16 05:45 07/26/16 05:45 PT 10.3 SECONDS (9.6-11.2) 07/26/16 05:45 INR 0.99 (0.92-1.08) 07/26/16 05:45 APTT 25.3 SECONDS (23.3-32.5) 07/26/16 05:45 - Constitutional Appears: Non-toxic - Eye Exam Eye Exam: EOMI, Normal appearance, PERRL - ENT Exam ENT Exam: Mucous Membranes Moist - Respiratory Exam Respiratory Exam: Clear to Ausculation Bilateral, NORMAL BREATHING PATTERN - Cardiovascular Exam Cardiovascular Exam: REGULAR RHYTHM, +S1, +S2. absent: Gallop - GI/Abdominal Exam GI & Abdominal Exam: Soft. absent: Distended, Tenderness, Rebound - Extremities Exam Extremities Exam: Joint Swelling, Normal Capillary Refill, Tenderness (l/ankle covered with gauze(clean and dry). ). absent: Calf Tenderness - Neurological Exam Neurological Exam: Alert, Awake, Oriented x3 - Skin Skin Exam: Warm Assessment and Plan - Assessment and Plan (Free Text) Assessment: 46 y/o F with Hx of [place]'s disease and hypothyroidism admitted for LE cellulitis and stress Fx L/ankle cellulitis Left Ankle Pain as per patient no Hx of trauma WoundCx and Bx growing Gram+ cocci Cont Zosyn and Vanco IV day 3 PICC to be placed today Afebrile Wound care as per Podiatry team Uric Acid WNL 3.9 RICE treatment pain management consulted. Cont current treatment plan. Recs titrate down pain meds if possible Discussed with Podiatry: Patient to undergo debridement tomorrow AM Bacteremia WBC continue trending down BCx growing gram + cocci COnt IV abx as above PICC line ordered Will cont following ID recs Repeat BCx ordered Repeat lactic acid WNL Abnormal lab hematology elevated MCV, MCH, Plt. Low RBC F/U vit b12, folate, hep panel, PT,INR, CRP [place]'s Disease Dose increased yesterday due to extra stress and patient going for Sx tomorrow continue with PO dexamethasone and flucortef will cont monitoring Hypothyroidism TSH 7.1 c/w levothyroxine Prophylactic measures Ppx DVT -Hold levemir for now
--- NOTE | 2016-07-26 13:59 | VASCULAR ---
PROCEDURE: Date of procedure: 07/26/2016 Procedure: 1. Placement of a right arm PICC with ultrasound and fluoroscopic guidance, CPT 97081 2. PICC tip confirmation with spot radiograph and is in the superior vena cava Medications: 1 percent lidocaine Total Fluoro time: 39 seconds Radiation: 3.06 mGy EBL: 2 cc HISTORY: Bacteremia requiring long-term IV antibiotics TECHNIQUE: Following informed consent and procedure time-out, the patient was placed supine on the interventional table and the right arm prepped and draped in the usual sterile fashion. Ultrasound showed a patent and compressible right basilic vein. After the skin was anesthetized with lidocaine, the basilic vein was accessed with micro micropuncture technique using ultrasound guidance. A guidewire was then advanced under fluoroscopic guidance into the superior vena cava. An image documenting ultrasound guidance for vascular access was permanently saved. The length of the single-lumen 4 Syrian PICC was trimmed to 35 centimeters and advanced through a peel-away sheath. The PICC was position with tip of PICC confirm a spot radiograph the superior vena cava. The PICC was secured to the patient's skin. The PICC was flushed. A biopatch and sterile dressing was applied. IMPRESSION: Placement of a single-lumen 4 Syrian PICC trimmed to 35 centimeters via right basilic vein. The tip of the PICC is confirmed with spot radiograph and is in the superior vena cava.
--- NOTE | 2016-07-26 16:46 | CP.PCM.PN ---
Subjective - Date & Time of Evaluation Date of Evaluation: 07/26/16 Time of Evaluation: 07:20 - Subjective Subjective: 46 y/o female seen concerning right leg edema and focal hematoma 1 day s/p left medial ankle incision and drainage. Pt is much improved since yesterday, with reduction in edema, and medial erythema decreased in intensity. Central portion color intensity and side decreased 30% this morning the same. Pt reports pain medication is keeping breakthrough pain well controlled. Pt denies recent f/c/cp /sob/n/v. Objective - Vital Signs/Intake and Output Vital Signs (last 24 hours): Temp Pulse Resp BP Pulse Ox 99.2 F 78 18 117/76 99 07/26/16 12:16 07/26/16 12:16 07/26/16 12:16 07/26/16 12:16 07/26/16 12:16 - Medications Medications: Current Medications Dexamethasone (Decadron) 1.5 mg PO DAILY [facility] Last Admin: 07/26/16 08:45 Dose: 1.5 mg Fludrocortisone Acetate (Florinef) 0.1 mg PO DAILY [facility] Last Admin: 07/26/16 08:45 Dose: 0.1 mg Piperacillin Sod/Tazobactam (Sod 3.375 gm/ Sodium Chloride) 100 mls @ 100 mls/ hr IVPB Q8 [facility] Last Admin: 07/26/16 08:49 Dose: 100 mls/hr Vancomycin HCl 1 gm/ Sodium (Chloride) 250 mls @ 166.667 mls/hr IVPB Q12 [facility] Last Admin: 07/26/16 10:15 Dose: 166.667 mls/hr Ketorolac Tromethamine (Toradol) 30 mg IVP Q6 PRN PRN Reason: Pain, Mild (1-3) Last Admin: 07/26/16 14:38 Dose: 30 mg Levothyroxine Sodium (Synthroid) 125 mcg PO DAILY@0630 [facility] Last Admin: 07/26/16 06:00 Dose: 125 mcg Morphine Sulfate (Morphine) 2 mg IVP Q4 PRN PRN Reason: Pain, severe (8-10) Last Admin: 07/26/16 10:13 Dose: 2 mg Pregabalin (Lyrica) 50 mg PO BID [facility] Last Admin: 07/26/16 14:40 Dose: Not Given Tramadol HCl (Ultram) 50 mg PO Q4 PRN PRN Reason: Pain, moderate (4-7) - Labs Labs: 07/26/16 05:45 07/26/16 05:45 PT 10.3 SECONDS (9.6-11.2) 07/26/16 05:45 INR 0.99 (0.92-1.08) 07/26/16 05:45 APTT 25.3 SECONDS (23.3-32.5) 07/26/16 05:45 - Constitutional Appears: Well, Non-toxic, No Acute Distress - Extremities Exam Additional comments: Left leg focused. VASC: DP and Pt pulses are non-palpable secondary to edema. Capillary refill time noted to all 5 digits to be <3 seconds. Moderate non-pitting edema noted extending from proximal level of ankle joint to distal digits. Mild callor to left lower leg and foot. DERM: 1.5 cm longitudinal incision made overlying medial focal core of hematoma with superior blanching. Ankle joint and rearfoot shows erythema, with moderate focal points at level of both malleoli, medial greater than lateral. Lateral malleoli has focal point of ecchymosis, whose central portions are tender to palpation. Skin tension to foot and ankle reduced. Serous drainage noted. No open wounds, hyper-pigmentations, or macerations noted. Well healed hallux and 2nd digit cicatrix sites noted. NERUO: Protective sensation is grossly intact. ORTHO: Minor passive ankle joint ROM noted, graded 5/5, with noted guarding. No gross deformities noted. - Neurological Exam Neurological Exam: Alert, Awake, Oriented x3 - Psychiatric Exam Psychiatric exam: Normal Affect, Normal Mood Assessment and Plan - Assessment and Plan (Free Text) Assessment: Left ankle hematoma. Plan: Pt evaluated and treated with attending, Dr. Finnegan. Charts, labs, and vitals reviewed. Afebrile, WBC=14.0 K Discussed in detail, who endorsed the treatment plan and has been made aware of results of following procedure. -Pain control -Pt to remain non-weight bearing to left Leg. Rt to go to OR tomorrow 07/27/16 @ 7:45 AM for left ankle arthroscope with incision & drainage. - Medical clearance in chart. Podiatry will continue to follow while inhouse.
[2016-07-26 18:28] LABS: PROCALCITONIN SERUM < 0.05 NG/ML (0.19-0.49)
[2016-07-27] MEDS: Piperacillin/Tazobact 3.375 GM in Sodium Chloride 0.9% 100 ML IVPB SCH ×3 (00:52→16:53)
[2016-07-27] MEDS: Levothyroxine 125 MCG TAB PO SCH (05:55)
--- NOTE | 2016-07-27 06:45 | CP.PCM.PN ---
Subjective - Date & Time of Evaluation Date of Evaluation: 07/27/16 Time of Evaluation: 06:45 - Subjective Subjective: 46 y/o female seen concerning right leg edema and focal hematoma 2 day s/p left medial ankle incision and drainage. Pt is much improved since yesterday, with reduction in edema. Pt confirms she has been NPO since midnight Pt denies recent f/c/cp/sob/n/v. Objective - Vital Signs/Intake and Output Vital Signs (last 24 hours): Temp Pulse Resp BP Pulse Ox 98.5 F 80 19 119/74 95 07/27/16 00:00 07/27/16 00:00 07/27/16 00:00 07/27/16 00:00 07/27/16 00:00 - Medications Medications: Current Medications Dexamethasone (Decadron) 1.5 mg PO DAILY [facility] Last Admin: 07/26/16 08:45 Dose: 1.5 mg Fludrocortisone Acetate (Florinef) 0.1 mg PO DAILY [facility] Last Admin: 07/26/16 08:45 Dose: 0.1 mg Piperacillin Sod/Tazobactam (Sod 3.375 gm/ Sodium Chloride) 100 mls @ 100 mls/ hr IVPB Q8 [facility] Last Admin: 07/27/16 00:52 Dose: 100 mls/hr Vancomycin HCl 1 gm/ Sodium (Chloride) 250 mls @ 166.667 mls/hr IVPB Q12 [facility] Last Admin: 07/26/16 20:39 Dose: 166.667 mls/hr Ketorolac Tromethamine (Toradol) 30 mg IVP Q6 PRN PRN Reason: Pain, Mild (1-3) Last Admin: 07/27/16 05:30 Dose: 30 mg Levothyroxine Sodium (Synthroid) 125 mcg PO DAILY@0630 [facility] Last Admin: 07/27/16 05:55 Dose: Not Given Morphine Sulfate (Morphine) 2 mg IVP Q4 PRN PRN Reason: Pain, severe (8-10) Last Admin: 07/26/16 10:13 Dose: 2 mg Pregabalin (Lyrica) 50 mg PO BID [facility] Last Admin: 07/26/16 18:16 Dose: 50 mg Tramadol HCl (Ultram) 50 mg PO Q4 PRN PRN Reason: Pain, moderate (4-7) Last Admin: 07/26/16 20:39 Dose: 50 mg - Labs Labs: 07/26/16 05:45 07/26/16 05:45 PT 10.3 SECONDS (9.6-11.2) 07/26/16 05:45 INR 0.99 (0.92-1.08) 07/26/16 05:45 APTT 25.3 SECONDS (23.3-32.5) 07/26/16 05:45 - Constitutional Appears: Well, Non-toxic, No Acute Distress - Extremities Exam Additional comments: Left leg focused. VASC: DP and Pt pulses are non-palpable secondary to edema. Capillary refill time noted to all 5 digits to be <3 seconds. Moderate non-pitting edema noted extending from proximal level of ankle joint to distal digits. Mild callor to left lower leg and foot. DERM: 1.5 cm longitudinal incision made overlying medial focal core of hematoma with superior blanching. Ankle joint and rearfoot shows erythema, with moderate focal points at level of both malleoli, medial greater than lateral. Lateral malleoli has focal point of ecchymosis, whose central portions are tender to palpation. Skin tension to foot and ankle reduced. Serous drainage noted. No open wounds, hyper-pigmentations, or macerations noted. Well healed hallux and 2nd digit cicatrix sites noted. NERUO: Protective sensation is grossly intact. ORTHO: Minor passive ankle joint ROM noted, graded 5/5, with noted guarding. No gross deformities noted. - Neurological Exam Neurological Exam: Alert, Awake, Oriented x3 - Psychiatric Exam Psychiatric exam: Normal Affect, Normal Mood Assessment and Plan - Assessment and Plan (Free Text) Assessment: Left ankle hematoma. Plan: Pt was seen and examined in SDS Pt NPO status was confirmed All Pre-op testing and clearance was in the chart Pt has exhausted all conservative treatment at this time and is opting for surgical intervention Pt was explained procedure and post-operative course All pt's questions were answered to satisfaction No guarantees were made Pt understands all risks, benefits and complications of procedure Pt will follow-up with Dr. Finnegan.
[2016-07-27] MEDS ORDERED: Propofol 10 mg/ml Inj (20 ML) ONE (07:34)
[2016-07-27] MEDS ORDERED: Midazolam 2 MG/2 ML VIAL ONE (07:34)
[2016-07-27] MEDS ORDERED: Dexamethasone 4 mg/1 ml ONE (07:35)
[2016-07-27] MEDS ORDERED: Bupivacaine 0.25%-Epinephrine 1:200,000 (30 ml) Inj ONE ×2 (07:36→09:22)
[2016-07-27] MEDS ORDERED: Lidocaine 1% Inj (20ml) ONE ×2 (07:36→09:23)
[2016-07-27] MEDS ORDERED: Gentamicin 80 mg/2mL Inj. ONE ×2 (07:48→08:35)
[2016-07-27] MEDS ORDERED: Gentamicin 80 mg/2mL Inj. IVPB ONE (07:49)
[2016-07-27] MEDS ORDERED: Piperacillin/Tazobact 3.375 gm Inj IVPB ONE (07:49)
[2016-07-27] MEDS ORDERED: Lactated Ringer's 1,000 ML IV ONE (07:49)
[2016-07-27] MEDS ORDERED: Cellulose Hemostat 2X3 Sheet TP ONE (08:30)
[2016-07-27] MEDS ORDERED: Bupivacaine HCl 0.5% PF (10 ml) Inj ONE (09:22)
--- NOTE | 2016-07-27 09:25 | PCM.SURG1 ---
Surgeon's Initial Post Op Note - Surgeon's Notes Surgeon: Kenneth Conklin DPM [employer] Sales Representative: Darrel Hodge, PGY3 Type of Anesthesia: General Endo Anesthesia Administered By: Dr. Vish MD Pre-Operative Diagnosis: Left ankle hematoma Operative Findings: See dictation Post-Operative Diagnosis: Left ankle hematoma and cellulits Operation Performed: Left ankle incison and drainage w/ lavage. Specimen/Specimens Removed: 1) Deep fluid culture. 2) Deep Fluid Culture Estimated Blood Loss: EBL {In ML}: 30 Blood Products Given: N/A Drains Used: No Drains Post-Op Condition: Good Date of Surgery/Procedure: 07/27/16 Time of Surgery/Procedure: 08:00
[2016-07-27] MEDS ORDERED: HYDROmorphone 0.5 mg/0.5 ml ISec ONE (09:26)
[2016-07-27] MEDS: HYDROmorphone 0.5 mg/0.5 ml ISec IVP PRN ×2 (09:30→09:35)
[2016-07-27] MEDS ORDERED: Vancomycin 1 g Inj IVPB ONE ×2 (09:31)
--- NOTE | 2016-07-27 09:31 | CP.PCM.PN ---
Objective - Vital Signs/Intake and Output Vital Signs (last 24 hours): Temp Pulse Resp BP Pulse Ox 98.7 F 74 20 109/76 97 07/27/16 07:24 07/27/16 07:24 07/27/16 07:24 07/27/16 07:24 07/27/16 07:24 Intake and Output: 07/27/16 07/27/16 06:59 18:59 Intake Total 200 Balance 200 - Medications Medications: Current Medications Dexamethasone (Decadron) 1.5 mg PO DAILY [facility] Last Admin: 07/26/16 08:45 Dose: 1.5 mg Fludrocortisone Acetate (Florinef) 0.1 mg PO DAILY [facility] Last Admin: 07/26/16 08:45 Dose: 0.1 mg Piperacillin Sod/Tazobactam (Sod 3.375 gm/ Sodium Chloride) 100 mls @ 100 mls/ hr IVPB Q8 [facility] Last Admin: 07/27/16 00:52 Dose: 100 mls/hr Vancomycin HCl 1 gm/ Sodium (Chloride) 250 mls @ 166.667 mls/hr IVPB Q12 [facility] Last Admin: 07/26/16 20:39 Dose: 166.667 mls/hr Ketorolac Tromethamine (Toradol) 30 mg IVP Q6 PRN PRN Reason: Pain, Mild (1-3) Last Admin: 07/27/16 05:30 Dose: 30 mg Levothyroxine Sodium (Synthroid) 125 mcg PO DAILY@0630 [facility] Last Admin: 07/27/16 05:55 Dose: Not Given Morphine Sulfate (Morphine) 2 mg IVP Q4 PRN PRN Reason: Pain, severe (8-10) Last Admin: 07/26/16 10:13 Dose: 2 mg Pregabalin (Lyrica) 50 mg PO BID [facility] Last Admin: 07/26/16 18:16 Dose: 50 mg Tramadol HCl (Ultram) 50 mg PO Q4 PRN PRN Reason: Pain, moderate (4-7) Last Admin: 07/26/16 20:39 Dose: 50 mg - Labs Labs: 07/26/16 05:45 07/26/16 05:45 PT 10.3 SECONDS (9.6-11.2) 07/26/16 05:45 INR 0.99 (0.92-1.08) 07/26/16 05:45 APTT 25.3 SECONDS (23.3-32.5) 07/26/16 05:45
[2016-07-27] MEDS ORDERED: Lactated Ringer's 1,000 ML IV SCH (09:32)
[2016-07-27] MEDS ORDERED: DiphenhydrAMINE 50 mg/ml Inj IVP PRN (09:32)
[2016-07-27] MEDS ORDERED: HYDROmorphone 0.5 mg/0.5 ml ISec IVP ONE (10:35)
--- NOTE | 2016-07-27 10:41 | PCM.ANESB2 ---
Popliteal Nerve Block - Popliteal Nerve Block Date of Procedure: 07/27/16 Anesthesiologist: Dr. Bernardo Pre-Procedure Diagnosis: I & D left ankle Post-Procedure Diagnosis: I & D left ankle Procedure Performed: Popliteal Nerve Block Left - Procedure Popliteal Nerve Block: This procedure was explained to the patient that it is for post-operative pain management. Consent was obtained after a thorough discussion with the patient regarding the benefits and possible complications of local anesthetic block of the sciatic nerve at the popliteal level. While the patient was was still in recovery room with standard monitors. Time-out was held with the nurse to confirm the correct side and appropriate block. After applying oxygen by nasal cannula and administering IV analgesic, patient's operative leg was gently raised and supported and the groove in between the biceps femoris and vastus lateralis muscles was carefully palpated. The skin approximately 8cm above the popliteal crease was then marked. The ultrasound transducer was then applied to the posterior thigh approximately 8cm above the popliteal crease in the transverse plane and the sciatic nerve before its division was visualized lateral to the popliteal artery and in between the bicep femoris and semimembranosus/semitendinosus muscles. After identification, the lateral portion of the thigh was prepped with Chloraprep solution and Lidocaine 1% was injected subcutaneously for topical anesthesia. At this point, a # 21 gauge Stimuplex insulated 4 inch needle was inserted into pre-marked area and advanced in a perpendicular direction. The needle was inserted above the ultrasound transducer in-plane towards the sciatic nerve in a [id number] direction. Needle advancement was performed carefully under direct ultrasound visualization. After repeated negative aspiration, 5cc of 0.375 % bupivacaine was injected and this was flowed with 15cc of 0.375% bupivacaine. Under ultrasound guidance the local anesthetics were observed tenting the epidural sheath and surrounding the roots of the sciatic nerve. The needle was removed intact and sterile dressing was applied. The patient tolerated the popliteal nerve block well with stable vital signs.
--- NOTE | 2016-07-27 10:46 | PCM.ANESB7 ---
Adductor Canal Block - Adductor Canal Block Date of Procedure: 07/27/16 Anesthiologist: Dr. Bernardo Pre-Procedure Diagnosis: I & D left ankle Post-Procedure Diagnosis: I & D left ankle Procedure Performed: Adductor Canal Block Left - Procedure Adductor Canal Block: The procedure was explained to the patient that it is for the post-operative pain management. Consent was obtained after a thorough discussion with the patient regarding the benefits and possible complications of local anesthetic adductor canal block of the femoral nerve. Standard monitors, as defined by the ASA, were applied to the patient. Time-out was held with the nurse to confirm the appropriate block. After applying supplemental oxygen and administering IV analgesic as needed, the patient in supine position with and the operative leg was flexed slightly at the knee and externally rotated as needed, and was kept anatomically stable. The mid-thigh of the left lower extremity was exposed. The ultrasound transducer was then applied transversely along the medial aspect , about midway down the thigh and the femoral artery and vein were identified in appropriate relation with the sartorius muscle. At this time, the femoral nerve was visualized lateral to the femoral artery within the canal. After thorough identification, this area area was prepped with Chloroprep solution and 1 % Lidocaine was injected subcutaneously for topical anesthesia. At this point, a #21 gauge Stimuplex 4-inch needle was inserted in-plane in a [id number] orientation, and advanced toward the femoral nerve. Advancement was performed carefully under direct ultrasound visualization. After negative aspiration, 5cc of 0.25% bupivacaine with 1:200,000 epinephrine was injected and this was followed with 15cc of 0.25% bupivacaine with 1:200, 000 epinephrine. Under ultrasound guidance the local anesthetics were observed spreading around the femoral nerve. The needle was removed intact and sterile dressing was applied. The patient had stable vital signs, was conscious and in no apparent distress. The patient tolerated the femoral nerve block well with stable vital signs.
--- NOTE | 2016-07-27 14:29 | CP.PCM.PN ---
Subjective - Date & Time of Evaluation Date of Evaluation: 07/27/16 Time of Evaluation: 02:10 - Subjective Subjective: 46 y/o F admitted to L/ankle cellulitis seen at bedside comfortable, sleeping, not acute distress, no resp distress. Patient underwent wound debridement this morning by Podiatry team. Procedure was done successfully and patient has been stable. Pain controlled with current treatment and being managed by pain management. Objective - Vital Signs/Intake and Output Vital Signs (last 24 hours): Temp Pulse Resp BP Pulse Ox 98.3 F 76 18 107/86 100 07/27/16 11:35 07/27/16 11:35 07/27/16 11:35 07/27/16 11:35 07/27/16 11:35 Intake and Output: 07/27/16 07/27/16 06:59 18:59 Intake Total 650 Balance 650 - Medications Medications: Current Medications Dexamethasone (Decadron) 1.5 mg PO DAILY [facility] Last Admin: 07/26/16 08:45 Dose: 1.5 mg Fludrocortisone Acetate (Florinef) 0.1 mg PO DAILY [facility] Last Admin: 07/26/16 08:45 Dose: 0.1 mg Piperacillin Sod/Tazobactam (Sod 3.375 gm/ Sodium Chloride) 100 mls @ 100 mls/ hr IVPB Q8 [facility] Last Admin: 07/27/16 00:52 Dose: 100 mls/hr Vancomycin HCl 1 gm/ Sodium (Chloride) 250 mls @ 166.667 mls/hr IVPB Q12 [facility] Last Admin: 07/27/16 09:31 Dose: 250 mls Lactated Ringer's (Lactated Ringer's) 1,000 mls @ 100 mls/hr IV .Q10H [facility] Ketorolac Tromethamine (Toradol) 30 mg IVP Q6 PRN PRN Reason: Pain, Mild (1-3) Last Admin: 07/27/16 05:30 Dose: 30 mg Levothyroxine Sodium (Synthroid) 125 mcg PO DAILY@0630 [facility] Last Admin: 07/27/16 05:55 Dose: Not Given Morphine Sulfate (Morphine) 2 mg IVP Q4 PRN PRN Reason: Pain, severe (8-10) Last Admin: 07/26/16 10:13 Dose: 2 mg Pregabalin (Lyrica) 50 mg PO BID [facility] Last Admin: 07/26/16 18:16 Dose: 50 mg Tramadol HCl (Ultram) 50 mg PO Q4 PRN PRN Reason: Pain, moderate (4-7) Last Admin: 07/26/16 20:39 Dose: 50 mg - Labs Labs: 07/26/16 05:45 07/26/16 05:45 PT 10.3 SECONDS (9.6-11.2) 07/26/16 05:45 INR 0.99 (0.92-1.08) 07/26/16 05:45 APTT 25.3 SECONDS (23.3-32.5) 07/26/16 05:45 - Constitutional Appears: Non-toxic, No Acute Distress - Head Exam Head Exam: NORMAL INSPECTION - ENT Exam ENT Exam: Mucous Membranes Moist - Neck Exam Neck Exam: Normal Inspection - Extremities Exam Extremities Exam: absent: Normal Inspection (L/leg covered with post-op dressing and bandage. Leg elevated. NO signs of vascular or tessy compromised) - Neurological Exam Neurological Exam: Alert, Awake - Skin Skin Exam: Warm Assessment and Plan - Assessment and Plan (Free Text) Assessment: 46 y/o F with Hx of [place]'s disease and hypothyroidism admitted for LE cellulitis/hematoma and stress Fx L/ankle cellulitis and Hematoma Left Ankle Pain as per patient no Hx of trauma WoundCx and Bx growing Gram+ cocci WCx staph aureus sensitive to Vanco Cont Zosyn and Vanco IV day 4: Abx managed by Podiatry team Afebrile Uric Acid WNL 3.9 RICE treatment pain management consulted. Cont current treatment plan. Recs titrate down pain meds if possible Discussed with Podiatry: Patient to undergo debridement tomorrow AM Bacteremia WBC continue trending down BCx growing gram + cocci Cont IV abx as above PICC line ordered Will cont following ID recs Repeat BCx ordered Repeat lactic acid WNL Abnormal lab hematology elevated MCV, MCH, Plt. Low RBC F/U vit b12, folate, hep panel, CRP PT,INR WNL [place]'s Disease Dose increased yesterday to 1.5mg daily continue with PO dexamethasone and flucortef will cont monitoring Hypothyroidism TSH 7.1 c/w levothyroxine Prophylactic measures Ppx DVT -Hold levemir for now
[2016-07-27] MEDS ORDERED: Labetalol 5mg/ml (4ml) IVP PRN (15:48)
[2016-07-27 16:53] LABS: HEMATOCRIT 31.5 % (34.0-47.0); MEAN CELL VOLUME 101.4 fl (81.0-99.0); MEAN CORPUSCULAR HEMOGLOBIN 34.9 pg (27.0-31.0); MEAN CORPUSCULAR HGB CONC 34.5 g/dL (33.0-37.0); RED CELL DISTRIBUTION WIDTH 13.5 % (11.5-14.5)
[2016-07-27 16:56] LABS: WHITE BLOOD COUNT 20.8 K/uL (4.8-10.8)
--- NOTE | 2016-07-27 17:33 | CP.PCM.PN ---
Subjective - Date & Time of Evaluation Date of Evaluation: 07/27/16 Time of Evaluation: 17:30 - Subjective Subjective: ID NOTE IS POST OP C CULTURES DONE AND PENDING BLOOD CULTURE IS POS FOR [facility]APH [facility]UREUS FOR PRESENT CONTINUE VANCOMYCIN AND ZOSYN AWAIT FURTHER RESULTS PREVIOUSLY NOTED WILL NEED EXTENDED IV ANTIBIOTIC RX (4 TO 6 WEEKS) Objective - Vital Signs/Intake and Output Vital Signs (last 24 hours): Temp Pulse Resp BP Pulse Ox 98.2 F 78 20 102/67 97 07/27/16 16:39 07/27/16 16:39 07/27/16 16:39 07/27/16 16:39 07/27/16 16:39 Intake and Output: 07/27/16 07/27/16 06:59 18:59 Intake Total 650 Balance 650 - Medications Medications: Current Medications Dexamethasone (Decadron) 1.5 mg PO DAILY [facility] Last Admin: 07/27/16 09:00 Dose: Not Given Fludrocortisone Acetate (Florinef) 0.1 mg PO DAILY [facility] Last Admin: 07/27/16 09:48 Dose: Not Given Piperacillin Sod/Tazobactam (Sod 3.375 gm/ Sodium Chloride) 100 mls @ 100 mls/ hr IVPB Q8 [facility] Last Admin: 07/27/16 16:53 Dose: 100 mls/hr Vancomycin HCl 1 gm/ Sodium (Chloride) 250 mls @ 166.667 mls/hr IVPB Q12 [facility] Last Admin: 07/27/16 09:31 Dose: 250 mls Lactated Ringer's (Lactated Ringer's) 1,000 mls @ 100 mls/hr IV .Q10H [facility] Ketorolac Tromethamine (Toradol) 30 mg IVP Q6 PRN PRN Reason: Pain, Mild (1-3) Last Admin: 07/27/16 05:30 Dose: 30 mg Labetalol HCl (Trandate) 5 mg IVP Q15MIN PRN PRN Reason: Systolic Blood Pressure Stop: 07/27/16 15:48 Levothyroxine Sodium (Synthroid) 125 mcg PO DAILY@0630 [facility] Last Admin: 07/27/16 05:55 Dose: Not Given Morphine Sulfate (Morphine) 2 mg IVP Q4 PRN PRN Reason: Pain, severe (8-10) Last Admin: 07/26/16 10:13 Dose: 2 mg Pregabalin (Lyrica) 50 mg PO BID [facility] Last Admin: 07/27/16 16:50 Dose: 50 mg Tramadol HCl (Ultram) 50 mg PO Q4 PRN PRN Reason: Pain, moderate (4-7) Last Admin: 07/26/16 20:39 Dose: 50 mg - Labs Labs: 07/27/16 16:39 07/26/16 05:45 PT 10.3 SECONDS (9.6-11.2) 07/26/16 05:45 INR 0.99 (0.92-1.08) 07/26/16 05:45 APTT 25.3 SECONDS (23.3-32.5) 07/26/16 05:45
--- NOTE | 2016-07-27 19:09 | CP.PCM.CON ---
History of Present Illness - History of Present Illness History of Present Illness: I was asked to evlaute patient s/p surgery for ankle injury. Patient is a 46 year old female with PMH [place]'s disease who presents with pain and swelling of her left ankle. She was initally thought to have ligament microtear and was placed in a soft cast. The patient had a soft cast but eveloped swelling. She is s/p surgery for removal of localized hematoma. Review of Systems - Constitutional Constitutional: absent: As Per HPI, Anorexia, Chills, Daytime Sleepiness, Excessive Sweating, Fatigue, Fever, Frequent Falls, Headache, Increased Appetite , Lethargy, Malaise, Night Sweats, Snoring, Sleep Apnea, Weight Gain, Weight Loss, Weakness, Other - EENT Eyes: absent: As Per HPI, Blind Spots, Blurred Vision, Change in Vision, Decreased Night Vision, Diplopia, Discharge, Dry Eye, Exophthalmos, Floaters, Irritation, Itchy Eyes, Loss of Peripheral Vision, Pain, Photophobia, Requires Corrective Lenses, Sees Flashes, Spots in Vision, Tunnel Vision, Other Visual Disturbances, Loss of Vision, Other Ears: absent: As Per HPI, Decreased Hearing, Ear Discharge, Ear Pain, Tinnitus, Abnormal Hearing, Disequilibrium, Dizziness, Other Nose/Mouth/Throat: absent: As Per HPI, Epistaxis, Nasal Congestion, Nasal Discharge, Nasal Obstruction, Nasal Trauma, Nose Pain, Post Nasal Drip, Sinus Pain, Sinus Pressure, Bleeding Gums, Change in Voice, Dental Pain, Dry Mouth, Dysphagia, Halitosis, Hoarsness, Lip Swelling, Mouth Lesions, Mouth Pain, Odynophagia, Sore Throat, Throat Swelling, Tongue Swelling, Facial Pain, Neck Pain, Neck Mass, Other - Cardiovascular Cardiovascular: absent: As Per HPI, Acrocyanosis, Chest Pain, Chest Pain at Rest , Chest Pain with Activity, Claudication, Diaphoresis, Dyspnea, Dyspnea on Exertion, Edema, Irregular Heart Rhythm, Pain Radiating to Arm/Neck/Jaw, Leg Edema, Leg Ulcers, Lightheadedness, Orthopnea, Palpitations, Paroxysmal Nocturnal Dyspnea, Pedal Edema, Radiating Pain, Rapid Heart Rate, Slow Heart Rate, Syncope, Other - Respiratory Respiratory: absent: As Per HPI, Cough, Dyspnea, Hemoptysis, Dyspnea on Exertion , Wheezing, Snoring, Stridor, Pain on Inspiration, Chest Congestion, Excessive Mucous Production, Change in Mucous Color, Pain with Coughing, Other - Gastrointestinal Gastrointestinal: absent: As Per HPI, Abdominal Pain, Belching, Bloating, Change in Bowel Habits, Change in Stool Character, Coffee Ground Emesis, Constipation, Cramping, Diarrhea, Dyspepsia, Dysphagia, Early Satiety, Excessive Flatus, Fecal Incontinence, Heartburn, Hematemesis, Hematochezia, Loose Stools, Melena, Nausea, Odynophagia, Temesmus, Vomiting, Other - Genitourinary Genitourinary: absent: As Per HPI, Change in Urinary Stream, Difficulty Urinating, Dysuria, Flank Pain, Hematuria, Pyuria, Nocturia, Urinary Incontinence, Urinary Frequency, Urinary Hesitance, Urinary Urgency, Voiding Freq/Small Amts, Freq UTI, Hx Renal/Bladder Calculi, Hx /Renal Surgery, Bladder Distension, Other - Musculoskeletal Musculoskeletal: Radiating Pain into Limb - Integumentary Integumentary: absent: As Per HPI, Acne, Alopecia, Bleeding Lesions, Change in Hair, Change in Nails, Change in Pigmentation, Changing Lesions, Dry Skin, Erythema, Furuncle, Hirsutism, Lesions, New Lesions, Non-Healing Lesions, Photosensitivity, Pruritus, Rash, Skin Pain, Skin Ulcer, Sores, Striae, Swelling , Unusual Bruising, Wounds, Jaundice, Other - Neurological Neurological: absent: As Per HPI, Abnormal Gait, Abnormal Hearing, Abnormal Movements, Abnormal Speech, Behavioral Changes, Burning Sensations, Confusion, Convulsions, Disequilibrium, Dizziness, Numbness, Focal Weakness, Frequent Falls , Headaches, Lack of Coordination, Loss of Vision, Memory Loss, Paresthesias, Radicular Pain, Restless Legs, Sensory Deficit, Syncope, Tingling, Tremor, Vertigo, Weakness, Other Visual Disturbances, Other - Psychiatric Psychiatric: absent: As Per HPI, Abnormal Sleep Pattern, Anhedonia, Anxiety, Auditory Hallucinations, Behavioral Changes, Change in Appetite, Change in Libido, Confusion, Depression, Difficulty Concentrating, Hallucinations, Homicidal Ideation, Hopelessness, Irritability, Memory Loss, Mood Swings, Panic Attacks, Paranoia, Suicidal Ideation, Visual Hallucinations, Tactile Hallucinations, Other - Endocrine Endocrine: absent: As Per HPI, Change in Body Appearance, Change in Libido, Cold Intolorance, Deepening of Voice, Excessive Sweating, Fatigue, Flushing, Heat Intolorance, Increase in Ring/Shoe/Hat Size, Palpitations, Polydipsia, Polyphagia, Polyuria, Other - Hematologic/Lymphatic Hematologic: Easy Bruising Past Patient History - Past Medical History & Family History Past Medical History?: Yes - Past Social History Smoking Status: Heavy Smoker > 10 Cigarettes Daily - CARDIAC Hx Cardiac Disorders: No - PULMONARY Hx Respiratory Disorders: No - NEUROLOGICAL Hx Neurological Disorder: No - HEENT Hx HEENT Problems: No - RENAL Hx Chronic Kidney Disease: No - ENDOCRINE/METABOLIC Hx Hypothyroidism: Yes Other/Comment: addisons disease - HEMATOLOGICAL/ONCOLOGICAL Hx AIDS: No Hx Human Immunodeficiency Virus (HIV): No - INTEGUMENTARY Hx Dermatological Problems: No - MUSCULOSKELETAL/RHEUMATOLOGICAL Hx Musculoskeletal Disorders: No Hx Falls: No - GASTROINTESTINAL Hx Gastrointestinal Disorders: No - GENITOURINARY/GYNECOLOGICAL Hx Genitourinary Disorders: No - PSYCHIATRIC Hx Psychophysiologic Disorder: No Hx Substance Use: Yes (marijuana) - SURGICAL HISTORY Hx Surgeries: No Other/Comment: jeremías bunionectomy/rt alc repair /tonsilectomy - ANESTHESIA Hx Anesthesia: Yes Hx Anesthesia Reactions: No Hx Malignant Hyperthermia: No Has any member of the family had a problem w/ anesthesia?: No Meds Allergies/Adverse Reactions: Allergies Allergy/AdvReac Type Severity Reaction Status Date / Time No Known Allergies Allergy Verified 07/23/16 22:04 - Medications Medications: Current Medications Dexamethasone (Decadron) 1.5 mg PO DAILY [facility] Last Admin: 07/27/16 09:00 Dose: Not Given Fludrocortisone Acetate (Florinef) 0.1 mg PO DAILY [facility] Last Admin: 07/27/16 09:48 Dose: Not Given Piperacillin Sod/Tazobactam (Sod 3.375 gm/ Sodium Chloride) 100 mls @ 100 mls/ hr IVPB Q8 [facility] Last Admin: 07/27/16 16:53 Dose: 100 mls/hr Vancomycin HCl 1 gm/ Sodium (Chloride) 250 mls @ 166.667 mls/hr IVPB Q12 [facility] Last Admin: 07/27/16 09:31 Dose: 250 mls Lactated Ringer's (Lactated Ringer's) 1,000 mls @ 100 mls/hr IV .Q10H [facility] Ketorolac Tromethamine (Toradol) 30 mg IVP Q6 PRN PRN Reason: Pain, Mild (1-3) Last Admin: 07/27/16 05:30 Dose: 30 mg Labetalol HCl (Trandate) 5 mg IVP Q15MIN PRN PRN Reason: Systolic Blood Pressure Stop: 07/27/16 15:48 Levothyroxine Sodium (Synthroid) 125 mcg PO DAILY@0630 [facility] Last Admin: 07/27/16 05:55 Dose: Not Given Morphine Sulfate (Morphine) 2 mg IVP Q4 PRN PRN Reason: Pain, severe (8-10) Last Admin: 07/26/16 10:13 Dose: 2 mg Pregabalin (Lyrica) 50 mg PO BID [facility] Last Admin: 07/27/16 16:50 Dose: 50 mg Tramadol HCl (Ultram) 50 mg PO Q4 PRN PRN Reason: Pain, moderate (4-7) Last Admin: 07/26/16 20:39 Dose: 50 mg Physical Exam - Constitutional Appears: Non-toxic - Head Exam Head Exam: NORMAL INSPECTION - Eye Exam Eye Exam: Normal appearance - ENT Exam ENT Exam: Mucous Membranes Moist - Neck Exam Neck exam: Positive for: Full Rom - Respiratory Exam Respiratory Exam: NORMAL BREATHING PATTERN - Cardiovascular Exam Cardiovascular Exam: REGULAR RHYTHM - GI/Abdominal Exam GI & Abdominal Exam: Normal Bowel Sounds - Rectal Exam Rectal Exam: Deferred - Extremities Exam Extremities exam: Positive for: pedal edema, tenderness - Back Exam Back exam: NORMAL INSPECTION - Neurological Exam Neurological exam: Alert, Oriented x3 - Psychiatric Exam Psychiatric exam: Normal Affect - Skin Skin Exam: Normal Color Results - Vital Signs Recent Vital Signs: Last Vital Signs Temp 98.2 F 07/27/16 16:39 Pulse 78 07/27/16 16:39 Resp 20 07/27/16 16:39 BP 102/67 07/27/16 16:39 Pulse Ox 97 07/27/16 16:39 - Labs Result Diagrams: 07/27/16 16:39 07/26/16 05:45 Labs: Laboratory Results - last 24 hr 07/26/16 07/26/16 07/26/16 05:45 05:45 05:45 WBC RBC Hgb Hct MCV MCH MCHC RDW Plt Count RBC Folate 518 Teichoic Acid Antibody TNP Anti-Staphylolysin O Negative 07/27/16 16:39 WBC 20.8 H RBC 3.11 L Hgb 10.9 L Hct 31.5 L MCV 101.4 H MCH 34.9 H MCHC 34.5 RDW 13.5 Plt Count 538 H RBC Folate Teichoic Acid Antibody Anti-Staphylolysin O - EKG Data EKG Interpreted by: Myself EKG shows normal: Sinus rhythm Assessment & Plan (1) Left ankle swelling Assessment and Plan: will continue to monitor. vascular status appears intact. difficult to palpate or assess dorslis pedis due to dressing, however toes appear warm and well perfused. Status: Acute
[2016-07-28] MEDS: Piperacillin/Tazobact 3.375 GM in Sodium Chloride 0.9% 100 ML IVPB SCH ×3 (00:17→16:38)
[2016-07-28] MEDS: Levothyroxine 125 MCG TAB PO SCH (05:56)
[2016-07-28 08:21] LABS: BASO # 0.1 K/uL (0.0-0.2); BASO % 0.6 % (0.0-2.0); EOS # 0.1 K/uL (0.0-0.7); EOS % 0.9 % (0.0-4.0); HEMATOCRIT 31.4 % (34.0-47.0); LYMPH # 3.5 K/uL (1.0-4.3); LYMPH % 24.4 % (20.0-40.0); MEAN CELL VOLUME 101.4 fl (81.0-99.0); MEAN CORPUSCULAR HGB CONC 33.6 g/dL (33.0-37.0); MEAN PLATELET VOLUME 7.6 fl (7.2-11.7); MONO # 0.9 K/uL (0.0-0.8); MONO % 6.5 % (0.0-10.0); NEUT # 9.6 K/uL (1.8-7.0); NEUT % 67.6 % (50.0-75.0); NRBC % 0.1 % (0.0-0.0); RED CELL DISTRIBUTION WIDTH 13.6 % (11.5-14.5); WHITE BLOOD COUNT 14.3 K/uL (4.8-10.8)
[2016-07-28 08:39] LABS: ALB/GLOB RATIO 1.1 (1.0-2.1); ALKALINE PHOSPHATASE 62 U/L (38-126); ALT/SGPT 31 U/L (9-52); AST/SGOT 25 U/L (14-36); BILIRUBIN,TOTAL 0.2 mg/dl (0.2-1.3); BLOOD UREA NITROGEN 17 mg/dl (7-17); CALCIUM 8.7 mg/dL (8.4-10.2); CARBON DIOXIDE 27 mmol/L (22-30); CHLORIDE 104 mmol/L (98-107); GFR AFRICAN-AMERICAN > 60; GLUCOSE,RANDOM 91 mg/dL (65-105); POTASSIUM 4.3 MMOL/L (3.6-5.0); SODIUM 140 mmol/l (132-148); TOTAL PROTEIN 6.6 G/DL (6.3-8.2)
--- NOTE | 2016-07-28 09:40 | CP.PCM.PN ---
Subjective - Date & Time of Evaluation Date of Evaluation: 07/28/16 Time of Evaluation: 08:50 - Subjective Subjective: 46 y/o F admitted due to L/ankle cellulitis/hematoma seen at bedside in good spirits this morning, smiling and talkative. Patient states she feel much better. Denies CP, palpitations, SOB. L/ankle pain has improved and she is tolerating PO diet. No changes in urination or stools and she is afebrile. S/P I &D to L/ankle yesterday. Objective - Vital Signs/Intake and Output Vital Signs (last 24 hours): Temp Pulse Resp BP Pulse Ox 99.1 F 69 20 99/67 L 96 07/28/16 07:51 07/28/16 07:51 07/28/16 07:51 07/28/16 07:51 07/28/16 07:51 - Medications Medications: Current Medications Dexamethasone (Decadron) 1.5 mg PO DAILY [facility] Last Admin: 07/27/16 09:00 Dose: Not Given Fludrocortisone Acetate (Florinef) 0.1 mg PO DAILY [facility] Last Admin: 07/27/16 09:48 Dose: Not Given Piperacillin Sod/Tazobactam (Sod 3.375 gm/ Sodium Chloride) 100 mls @ 100 mls/ hr IVPB Q8 [facility] Last Admin: 07/28/16 00:17 Dose: 100 mls/hr Vancomycin HCl 1 gm/ Sodium (Chloride) 250 mls @ 166.667 mls/hr IVPB Q12 [facility] Last Admin: 07/27/16 20:13 Dose: 166.667 mls/hr Lactated Ringer's (Lactated Ringer's) 1,000 mls @ 100 mls/hr IV .Q10H [facility] Ketorolac Tromethamine (Toradol) 30 mg IVP Q6 PRN PRN Reason: Pain, Mild (1-3) Last Admin: 07/27/16 22:25 Dose: 30 mg Levothyroxine Sodium (Synthroid) 125 mcg PO DAILY@0630 [facility] Last Admin: 07/28/16 05:56 Dose: 125 mcg Morphine Sulfate (Morphine) 2 mg IVP Q4 PRN PRN Reason: Pain, severe (8-10) Last Admin: 07/28/16 08:11 Dose: 2 mg Pregabalin (Lyrica) 50 mg PO BID [facility] Last Admin: 07/27/16 16:50 Dose: 50 mg Tramadol HCl (Ultram) 50 mg PO Q4 PRN PRN Reason: Pain, moderate (4-7) Last Admin: 07/28/16 06:02 Dose: 50 mg - Labs Labs: 07/28/16 06:00 07/28/16 06:00 PT 10.0 SECONDS (9.6-11.2) 07/28/16 06:00 INR 0.96 (0.92-1.08) 07/28/16 06:00 APTT 25.0 SECONDS (23.3-32.5) 07/28/16 06:00 - Constitutional Appears: Non-toxic, No Acute Distress - Eye Exam Eye Exam: PERRL - ENT Exam ENT Exam: Mucous Membranes Moist - Neck Exam Neck Exam: Normal Inspection - Respiratory Exam Respiratory Exam: Clear to Ausculation Bilateral, NORMAL BREATHING PATTERN - Cardiovascular Exam Cardiovascular Exam: REGULAR RHYTHM, +S1, +S2 - GI/Abdominal Exam GI & Abdominal Exam: Soft, Normal Bowel Sounds - Extremities Exam Extremities Exam: absent: Normal Inspection (L/ankle coverd with dressing. Toes exposed, no signs of vascular or neuro compromise at this time.) - Neurological Exam Neurological Exam: Alert, Awake, Oriented x3. 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 L/ankle cellulitis and Hematoma S/P I&D by podiatry team WoundCx and Bx growing Gram+ cocci WCx staph aureus sensitive to Vanco Repeat BCx neg Cont Zosyn and Vanco IV day 5: Abx managed by ID(Dr Stevens) Afebrile Uric Acid WNL 3.9 RICE treatment pain management consulted. Cont current treatment plan. Recs titrate down pain meds if possible Bacteremia WBC continue trending down Initial BCx growing gram + cocci Cont IV abx as above PICC line plced: per ID 4-6 IV abx Will cont following ID recs Repeat lactic acid WNL Abnormal lab hematology elevated MCV, MCH, Plt. 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 Will discussed with Podiatry team about when is safe for patient to restart DVT prophylaxis since patient has risk factors and is in bed.
--- NOTE | 2016-07-28 12:36 | CP.PCM.PN ---
Subjective - Date & Time of Evaluation Date of Evaluation: 07/28/16 Time of Evaluation: 08:10 - Subjective Subjective: 46 y/o female seen at bedside POD#1 s/p left ankle incison and reainage (DOS 03/03) secondary to left ankle hematoma & cellulitis. Pt is in good mood this morning, and states she feel much better. Pt has not have any overnight pain or discomfort attributed to Left Popliteal & Adductor Canal blocks post- operatively. Pt denies overnight f/c/cp/sob/n/v. Objective - Vital Signs/Intake and Output Vital Signs (last 24 hours): Temp Pulse Resp BP Pulse Ox 99.1 F 69 20 99/67 L 96 07/28/16 07:51 07/28/16 07:51 07/28/16 07:51 07/28/16 07:51 07/28/16 07:51 - Medications Medications: Current Medications Dexamethasone (Decadron) 1.5 mg PO DAILY [facility] Last Admin: 07/28/16 10:01 Dose: 1.5 mg Fludrocortisone Acetate (Florinef) 0.1 mg PO DAILY [facility] [place] Last Admin: 07/28/16 10:02 Dose: 0.1 mg Piperacillin Sod/Tazobactam (Sod 3.375 gm/ Sodium Chloride) 100 mls @ 100 mls/ hr IVPB Q8 [facility] [place] Last Admin: 07/28/16 10:04 Dose: 100 mls/hr Vancomycin HCl 1 gm/ Sodium (Chloride) 250 mls @ 166.667 mls/hr IVPB Q12 [facility] Last Admin: 07/28/16 10:03 Dose: 166.667 mls/hr Lactated Ringer's (Lactated Ringer's) 1,000 mls @ 100 mls/hr IV .Q10H [facility] Ketorolac Tromethamine (Toradol) 30 mg IVP Q6 PRN PRN Reason: Pain, Mild (1-3) Last Admin: 07/28/16 12:16 Dose: 30 mg Levothyroxine Sodium (Synthroid) 125 mcg PO DAILY@0630 [facility] Last Admin: 07/28/16 05:56 Dose: 125 mcg Morphine Sulfate (Morphine) 2 mg IVP Q4 PRN PRN Reason: Pain, severe (8-10) Last Admin: 07/28/16 08:11 Dose: 2 mg Pregabalin (Lyrica) 50 mg PO BID [facility] Last Admin: 07/28/16 10:10 Dose: 50 mg Tramadol HCl (Ultram) 50 mg PO Q4 PRN PRN Reason: Pain, moderate (4-7) Last Admin: 07/28/16 06:02 Dose: 50 mg - Labs Labs: 07/28/16 06:00 07/28/16 06:00 PT 10.0 SECONDS (9.6-11.2) 07/28/16 06:00 INR 0.96 (0.92-1.08) 07/28/16 06:00 APTT 25.0 SECONDS (23.3-32.5) 07/28/16 06:00 - Constitutional Appears: Well, Non-toxic, No Acute Distress - Extremities Exam Additional comments: Left leg focused. Dressing clean, dry, nd intact with sanguinous exudate contained to inner dressings. VASC: DP and PT pulses are weakly palpable PT graded 2/4 DP as 1/4 secondary to edema. Capillary refill time noted to all 5 digits to be <3 seconds. Moderate non-pitting edema noted extending from distal level of ankle joint to proximal level of digits. Mild callor to left lower leg and foot. DERM: Medial ankle abscess defect measuring 3x2cm noted, all packing removed but surgicell noted and left in place. Minor bleeding noted upon removal of packing. absent signs of infection. Anterior and lateral incision sites are well approximated, and all sutures remain intact, no drainage from these 2 incisions. Skin tension to leg and ankle greatly reduced. Well healed hallux and 2nd digit cicatrix sites noted. NERUO: Protective sensation is grossly intact. ORTHO: Medal muscle strneght graded 5/5 in all 4 major muacle groups, no tenderness on palpation of ROM due to residual local anesthetic. Minor end range of motion ankle joint limitation. No gross deformities noted. - Neurological Exam Neurological Exam: Alert, Awake, Oriented x3 - Psychiatric Exam Psychiatric exam: Normal Affect, Normal Mood Assessment and Plan - Assessment and Plan (Free Text) Assessment: 46 year old female POD#1 s/p left ankle hematoma incision and drainage procedures. Plan: Pt evaluated and treated with attending, Dr. Finnegan, present. Charts, labs, and vitals reviewed. Afebrile, WBC=14.3 K -Pain control per Pain management. -Removed packing, Surgicell left intact. Flushed medial redundant abscess with sterile saline. Re-packed area with saline soaked 4x4 gauze,, dressed with saline soaked 4x4, DSD, kerlix and applied Figueroa compression. -Pt to remain non-weightbearing to left leg. -Cytology results - pending. -Intra-operative cultures- pending. Vascular consult reviewed. Podiatry will continue to follow patient while inhouse.
[2016-07-29] MEDS: Piperacillin/Tazobact 3.375 GM in Sodium Chloride 0.9% 100 ML IVPB SCH ×2 (00:18→09:37)
[2016-07-29] MEDS: Levothyroxine 125 MCG TAB PO SCH (05:54)
--- NOTE | 2016-07-29 08:23 | CP.PCM.PN ---
Subjective - Date & Time of Evaluation Date of Evaluation: 07/29/16 Time of Evaluation: 07:45 - Subjective Subjective: 46 y/o female seen at bedside POD#2 s/p left ankle incision and drainage (DOS 03/03) secondary to left ankle hematoma & resolved cellulitis. Pt is in good mood this morning, and states she ok today having suffered pain yesterday evening with resolution of Popliteal & Adductor Canal blocks post-operatively. Pt grades pain a "5/10", controlled with medication. Pt denies overnight f/c/cp/ sob/n/v. Objective - Vital Signs/Intake and Output Vital Signs (last 24 hours): Temp Pulse Resp BP Pulse Ox 97.8 F 74 20 141/88 97 07/29/16 08:11 07/29/16 08:11 07/29/16 08:11 07/29/16 08:11 07/29/16 08:11 - Medications Medications: Current Medications Dexamethasone (Decadron) 1.5 mg PO DAILY [facility] Last Admin: 07/28/16 10:01 Dose: 1.5 mg Fludrocortisone Acetate (Florinef) 0.1 mg PO DAILY [facility] Last Admin: 07/28/16 10:02 Dose: 0.1 mg Piperacillin Sod/Tazobactam (Sod 3.375 gm/ Sodium Chloride) 100 mls @ 100 mls/ hr IVPB Q8 [facility] Last Admin: 07/29/16 00:18 Dose: 100 mls/hr Vancomycin HCl 1 gm/ Sodium (Chloride) 250 mls @ 166.667 mls/hr IVPB Q12 [facility] Last Admin: 07/28/16 21:15 Dose: 166.667 mls/hr Ketorolac Tromethamine (Toradol) 30 mg IVP Q6 PRN PRN Reason: Pain, Mild (1-3) Last Admin: 07/28/16 22:37 Dose: 30 mg Levothyroxine Sodium (Synthroid) 125 mcg PO DAILY@0630 [facility] Last Admin: 07/29/16 05:54 Dose: 125 mcg Morphine Sulfate (Morphine) 2 mg IVP Q4 PRN PRN Reason: Pain, severe (8-10) Last Admin: 07/29/16 02:25 Dose: 2 mg Pregabalin (Lyrica) 50 mg PO BID [facility] Last Admin: 07/28/16 16:37 Dose: 50 mg Tramadol HCl (Ultram) 50 mg PO Q4 PRN PRN Reason: Pain, moderate (4-7) Last Admin: 07/29/16 05:04 Dose: 50 mg - Labs Labs: 07/28/16 06:00 07/28/16 06:00 PT 10.0 SECONDS (9.6-11.2) 07/28/16 06:00 INR 0.96 (0.92-1.08) 07/28/16 06:00 APTT 25.0 SECONDS (23.3-32.5) 07/28/16 06:00 - Constitutional Appears: Well, Non-toxic, No Acute Distress - Extremities Exam Additional comments: Left leg focused. Dressing clean, dry, nd intact with sanguinous exudate contained to inner dressings. VASC: DP and PT pulses are weakly palpable PT graded 2/4 DP as 1/4 secondary to edema. Capillary refill time noted to all 5 digits to be <3 seconds. Moderate non-pitting edema noted extending from distal level of ankle joint to proximal level of digits, more focal edema noted distally than proximally. Mild callor to left lower leg and foot. DERM: Medial ankle abscess defect measuring 3x2x 2cm noted, after all packing & surgicell removed. No active bleeders noted. Site absent signs of infection. Anterior and lateral incision sites are well approximated, and all sutures remain intact, no drainage from these 2 incisions. Skin tension to leg and ankle greatly reduced. Well healed hallux and 2nd digit cicatrix sites noted. NERUO: Protective sensation is grossly intact. ORTHO: Medal muscle strength graded 5/5 in all 4 major muacle groups, no tenderness on palpation of ROM due to residual local anesthetic. Minor end range of motion ankle joint limitation. No gross deformities noted. - Neurological Exam Neurological Exam: Alert, Awake, Oriented x3 - Psychiatric Exam Psychiatric exam: Normal Affect, Normal Mood Assessment and Plan - Assessment and Plan (Free Text) Assessment: 46 year old female POD#2 s/p left ankle hematoma incision and drainage procedures (DOS: 07/27/16). Plan: Pt evaluated and treated with attending, Dr. Finnegan, present. Charts, labs, and vitals reviewed. Afebrile, WBC=14.3 K -Pain control per Pain management. -Removed packing & Surgicell. Flushed medial redundant abscess with sterile saline. Re-packed area with 1/2inch plain packing, dressed with saline soaked 4x4, DSD, kerlix and applied Figueroa compression. -Pt to remain non-weightbearing to left leg. -Cytology results - pending. -Intra-operative cultures- pending. Podiatry will continue to follow patient while inhouse.
--- NOTE | 2016-07-29 10:01 | CP.PCM.PN ---
Subjective - Date & Time of Evaluation Date of Evaluation: 07/29/16 Time of Evaluation: 09:25 - Subjective Subjective: Follow up on left ankle cellulitis/hematoma. Pt siting up in bed, NAD, with at bedside. Pt states she is feeling much better. Pt is more talkative and report in beeter mood. She states pain has improved and control with current pain medicatio regimen. She is tolerating po diet and voiding without difficulty. Pt states she has not make bowel movement for 2 days but would like to try prune juice. Baseline bowel movement once 1-2 days. Denies CP, palpitations, SOB, calf tenderness, headache, dizziness. Denies worsening swelling/redness of left ankle. Objective - Vital Signs/Intake and Output Vital Signs (last 24 hours): Temp Pulse Resp BP Pulse Ox 97.8 F 74 20 141/88 97 07/29/16 08:11 07/29/16 08:11 07/29/16 08:11 07/29/16 08:11 07/29/16 08:11 - Medications Medications: Current Medications Dexamethasone (Decadron) 1.5 mg PO DAILY [facility] Last Admin: 07/29/16 09:38 Dose: 1.5 mg Fludrocortisone Acetate (Florinef) 0.1 mg PO DAILY [facility] Last Admin: 07/29/16 09:38 Dose: 0.1 mg Piperacillin Sod/Tazobactam (Sod 3.375 gm/ Sodium Chloride) 100 mls @ 100 mls/ hr IVPB Q8 [facility] Last Admin: 07/29/16 09:37 Dose: 100 mls/hr Vancomycin HCl 1 gm/ Sodium (Chloride) 250 mls @ 166.667 mls/hr IVPB Q12 [facility] Last Admin: 07/28/16 21:15 Dose: 166.667 mls/hr Ketorolac Tromethamine (Toradol) 30 mg IVP Q6 PRN PRN Reason: Pain, Mild (1-3) Last Admin: 07/28/16 22:37 Dose: 30 mg Levothyroxine Sodium (Synthroid) 125 mcg PO DAILY@0630 [facility] Last Admin: 07/29/16 05:54 Dose: 125 mcg Morphine Sulfate (Morphine) 2 mg IVP Q4 PRN PRN Reason: Pain, severe (8-10) Last Admin: 07/29/16 08:45 Dose: 2 mg Pregabalin (Lyrica) 50 mg PO BID [facility] Last Admin: 07/29/16 09:46 Dose: 50 mg Tramadol HCl (Ultram) 50 mg PO Q4 PRN PRN Reason: Pain, moderate (4-7) Last Admin: 07/29/16 05:04 Dose: 50 mg - Labs Labs: 07/28/16 06:00 07/28/16 06:00 PT 10.0 SECONDS (9.6-11.2) 07/28/16 06:00 INR 0.96 (0.92-1.08) 07/28/16 06:00 APTT 25.0 SECONDS (23.3-32.5) 07/28/16 06:00 - Additional Findings Additional findings: - Constitutional Appears: Non-toxic, No Acute Distress - Eye Exam Eye Exam: PERRL - ENT Exam ENT Exam: Mucous Membranes Moist - Neck Exam Neck Exam: Normal Inspection - Respiratory Exam Respiratory Exam: mild wheezing b/l lower lobe. improve since admission. good air entery - Cardiovascular Exam Cardiovascular Exam: REGULAR RHYTHM, +S1, +S2 - GI/Abdominal Exam GI & Abdominal Exam: Soft, Normal Bowel Sounds - Extremities Exam Extremities Exam: left ankle: dressing dry clean intact. Toes exposed, no signs of vascular or neuro compromise at this time. +capillary refills <20sec, warm to touch, +movement and sensation. - Neurological Exam Neurological Exam: Alert, Awake, Oriented x3. 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 admitted for LE cellulitis/hematoma s/p I&D L/ankle cellulitis and Hematoma S/P I&D by podiatry team WoundCx and Bx growing Gram+ cocci WCx staph aureus sensitive to Vanco Repeat BCx neg Cont Zosyn and Vanco IV day 5: Abx managed by ID(Dr Stevens) Afebrile Uric Acid WNL 3.9 RICE treatment pain management consulted continue management with podiatry Bacteremia ID on board WBC continue trending down Initial BCx growing gram + cocci PICC line plced: per ID 4-6 IV abx Repeat lactic acid WNL, leukocytosis trending down Cont IV abx as above Will cont following ID recs Abnormal lab hematology elevated MCV, MCH, Plt. Low RBC hep panel neg PT,INR WNL folate, vit b12, WNL CRP, ESR elevated [place]'s Disease Dose increased to 1.5mg daily due to inpatient hosp continue with PO dexamethasone and flucortef will cont monitoring Hypothyroidism TSH 7.1 c/w levothyroxine Prophylactic measures DVT ppx-No anticoag for now secondary to bleeding of the wound. discussed with Podiatry team and consider starting anticoagulation next day scd for now
--- NOTE | 2016-07-29 15:34 | CP.PCM.PN ---
Subjective - Date & Time of Evaluation Date of Evaluation: 07/29/16 Time of Evaluation: 15:29 - Subjective Subjective: ID NOTE AFEBRILE F/U CULTURES ARE NEGATIVE CLINICALLY HAS SEPTIC ARTHRITIS CONTINUE IV ANTIBIOTICS BUT WILL DC ZOSYN,REPLACE C MEROPENEM Objective - Vital Signs/Intake and Output Vital Signs (last 24 hours): Temp Pulse Resp BP Pulse Ox 97.8 F 74 20 141/88 97 07/29/16 08:11 07/29/16 08:11 07/29/16 08:11 07/29/16 08:11 07/29/16 08:11 - Medications Medications: Current Medications Dexamethasone (Decadron) 1.5 mg PO DAILY [facility] Last Admin: 07/29/16 09:38 Dose: 1.5 mg Fludrocortisone Acetate (Florinef) 0.1 mg PO DAILY [facility] Last Admin: 07/29/16 09:38 Dose: 0.1 mg Piperacillin Sod/Tazobactam (Sod 3.375 gm/ Sodium Chloride) 100 mls @ 100 mls/ hr IVPB Q8 [facility] Last Admin: 07/29/16 09:37 Dose: 100 mls/hr Vancomycin HCl 1 gm/ Sodium (Chloride) 250 mls @ 166.667 mls/hr IVPB Q12 [facility] Last Admin: 07/29/16 11:24 Dose: 166.667 mls/hr Ketorolac Tromethamine (Toradol) 30 mg IVP Q6 PRN PRN Reason: Pain, Mild (1-3) Last Admin: 07/29/16 11:22 Dose: 30 mg Levothyroxine Sodium (Synthroid) 125 mcg PO DAILY@0630 [facility] Last Admin: 07/29/16 05:54 Dose: 125 mcg Morphine Sulfate (Morphine) 2 mg IVP Q4 PRN PRN Reason: Pain, severe (8-10) Last Admin: 07/29/16 15:26 Dose: 2 mg Pregabalin (Lyrica) 50 mg PO BID [facility] Last Admin: 07/29/16 09:46 Dose: 50 mg Tramadol HCl (Ultram) 50 mg PO Q4 PRN PRN Reason: Pain, moderate (4-7) Last Admin: 07/29/16 10:29 Dose: 50 mg - Labs Labs: 07/28/16 06:00 07/28/16 06:00 PT 10.0 SECONDS (9.6-11.2) 07/28/16 06:00 INR 0.96 (0.92-1.08) 07/28/16 06:00 APTT 25.0 SECONDS (23.3-32.5) 07/28/16 06:00
[2016-07-29] MEDS: Meropenem 1 GM in Sodium Chloride 0.9% 100 ML IVPB SCH (22:00)
[2016-07-30] MEDS: Levothyroxine 125 MCG TAB PO SCH (05:59)
--- NOTE | 2016-07-30 07:13 | CP.PCM.PN ---
Subjective - Date & Time of Evaluation Date of Evaluation: 07/30/16 Time of Evaluation: 08:00 - Subjective Subjective: 46 y/o female seen at bedside POD#3 s/p left ankle incision and drainage (DOS 03/03) secondary to left ankle hematoma & resolved cellulitis. Pt sleeping on arrival this morning, easily roused. States she had moderate pain overnight controlled but not relieved with analgesics. Pt grades pain a "6/10" overnight at peak. Pt denies overnight f/c/cp/sob/n/v. Objective - Vital Signs/Intake and Output Vital Signs (last 24 hours): Temp Pulse Resp BP Pulse Ox 97.8 F 67 20 100/68 95 07/30/16 00:13 07/30/16 00:13 07/30/16 00:13 07/30/16 00:13 07/30/16 00:13 - Medications Medications: Current Medications Dexamethasone (Decadron) 1.5 mg PO DAILY [facility] Last Admin: 07/29/16 09:38 Dose: 1.5 mg Fludrocortisone Acetate (Florinef) 0.1 mg PO DAILY [facility] Last Admin: 07/29/16 09:38 Dose: 0.1 mg Vancomycin HCl 1 gm/ Sodium (Chloride) 250 mls @ 166.667 mls/hr IVPB Q12 [facility] Last Admin: 07/29/16 20:05 Dose: 166.667 mls/hr Meropenem 1 gm/ Sodium (Chloride) 100 mls @ 100 mls/hr IVPB Q12 [facility] Last Admin: 07/29/16 22:00 Dose: 100 mls/hr Ketorolac Tromethamine (Toradol) 30 mg IVP Q6 PRN PRN Reason: Pain, Mild (1-3) Last Admin: 07/30/16 05:15 Dose: 30 mg Levothyroxine Sodium (Synthroid) 125 mcg PO DAILY@0630 [facility] Last Admin: 07/30/16 05:59 Dose: 125 mcg Morphine Sulfate (Morphine) 2 mg IVP Q4 PRN PRN Reason: Pain, severe (8-10) Last Admin: 07/30/16 01:55 Dose: 2 mg Pregabalin (Lyrica) 50 mg PO BID [facility] Last Admin: 07/29/16 17:53 Dose: 50 mg Tramadol HCl (Ultram) 50 mg PO Q4 PRN PRN Reason: Pain, moderate (4-7) Last Admin: 07/29/16 17:49 Dose: 50 mg - Labs Labs: 07/28/16 06:00 07/28/16 06:00 PT 10.0 SECONDS (9.6-11.2) 07/28/16 06:00 INR 0.96 (0.92-1.08) 07/28/16 06:00 APTT 25.0 SECONDS (23.3-32.5) 07/28/16 06:00 - Constitutional Appears: Well, Non-toxic, No Acute Distress - Extremities Exam Additional comments: Left leg focused. Dressing clean, dry, and intact with sanguinous exudate contained to inner dressings. VASC: DP and PT pulses are weakly palpable PT graded 2/4 DP as 1/4 secondary to edema. Capillary refill time noted to all 5 digits to be <3 seconds. Moderate non-pitting edema noted extending from distal level of ankle joint to proximal level of digits, more focal edema noted distally than proximally. Mild callor to left lower leg and foot. DERM: Medial ankle abscess defect measuring 3x2x 2cm noted. No active bleeders noted. Site absent signs of infection. Anterior and lateral incision sites are well approximated, and all sutures remain intact, no drainage from these 2 incisions. Skin tension to leg and ankle greatly reduced. Well healed hallux and 2nd digit cicatrix sites noted. NERUO: Protective sensation is grossly intact. ORTHO: Medal muscle strength graded 5/5 in all 4 major muscle groups, tenderness on palpation and ankle joint ROM . Minor end range of motion ankle joint limitation. No gross deformities noted. - Neurological Exam Neurological Exam: Alert, Awake, Oriented x3 - Psychiatric Exam Psychiatric exam: Normal Affect, Normal Mood Assessment and Plan - Assessment and Plan (Free Text) Assessment: 46 year old female POD#3 s/p left ankle hematoma incision and drainage procedures (DOS: 07/27/16). Plan: Pt evaluated and treated. Discussed with attending, Dr. Finnegan. Charts, labs, and vitals reviewed. Afebrile. -Pain control per Pain management. -Flushed medial redundant abscess with sterile saline. Re-packed area with 1/ 2inch plain packing, dressed with saline soaked 4x4, DSD, kerlix and applied Figueroa compression. -Pt to remain non-weightbearing to left leg. -Cytology results - pending. -Intra-operative cultures- negative for growth. -DVT Prophylaxis- Lovenox 40mg. Podiatry will continue to follow patient while inhouse.
[2016-07-30] MEDS: Meropenem 1 GM in Sodium Chloride 0.9% 100 ML IVPB SCH ×2 (08:55→22:00)
--- NOTE | 2016-07-30 09:43 | CP.PCM.PN ---
Subjective - Date & Time of Evaluation Date of Evaluation: 07/30/16 Time of Evaluation: 09:30 - Subjective Subjective: 46 y/o F seen at bedside in not acute distress, in good mood, talkative, states pain is controlled with pain meds. Denies CP, SOB, calf pain or palpitations. Wound covered with dressing clean and dry. Patient had a BM yesterday. NO changes in urination. Patient currently on BID Vanco and Meropenen. Objective - Vital Signs/Intake and Output Vital Signs (last 24 hours): Temp Pulse Resp BP Pulse Ox 98.3 F 72 20 114/80 94 L 07/30/16 08:10 07/30/16 08:10 07/30/16 08:10 07/30/16 08:10 07/30/16 08:10 - Medications Medications: Current Medications Dexamethasone (Decadron) 1.5 mg PO DAILY [facility] Last Admin: 07/30/16 08:47 Dose: 1.5 mg Fludrocortisone Acetate (Florinef) 0.1 mg PO DAILY [facility] Last Admin: 07/30/16 08:48 Dose: 0.1 mg Vancomycin HCl 1 gm/ Sodium (Chloride) 250 mls @ 166.667 mls/hr IVPB Q12 [facility] Last Admin: 07/30/16 08:55 Dose: 166.667 mls/hr Meropenem 1 gm/ Sodium (Chloride) 100 mls @ 100 mls/hr IVPB Q12 [facility] Last Admin: 07/30/16 08:55 Dose: 100 mls/hr Ketorolac Tromethamine (Toradol) 30 mg IVP Q6 PRN PRN Reason: Pain, Mild (1-3) Last Admin: 07/30/16 05:15 Dose: 30 mg Levothyroxine Sodium (Synthroid) 125 mcg PO DAILY@0630 [facility] Last Admin: 07/30/16 05:59 Dose: 125 mcg Morphine Sulfate (Morphine) 2 mg IVP Q4 PRN PRN Reason: Pain, severe (8-10) Last Admin: 07/30/16 07:28 Dose: 2 mg Pregabalin (Lyrica) 50 mg PO BID [facility] Last Admin: 07/30/16 08:53 Dose: 50 mg Tramadol HCl (Ultram) 50 mg PO Q4 PRN PRN Reason: Pain, moderate (4-7) Last Admin: 07/29/16 17:49 Dose: 50 mg - Labs Labs: 07/28/16 06:00 07/28/16 06:00 PT 10.0 SECONDS (9.6-11.2) 07/28/16 06:00 INR 0.96 (0.92-1.08) 07/28/16 06:00 APTT 25.0 SECONDS (23.3-32.5) 07/28/16 06:00 - Constitutional Appears: Non-toxic, No Acute Distress - Eye Exam Eye Exam: PERRL - ENT Exam ENT Exam: Mucous Membranes Moist - Respiratory Exam Respiratory Exam: Clear to Ausculation Bilateral, NORMAL BREATHING PATTERN. absent: Rales, Wheezes - Cardiovascular Exam Cardiovascular Exam: REGULAR RHYTHM, +S1, +S2. absent: Gallop - GI/Abdominal Exam GI & Abdominal Exam: Soft, Normal Bowel Sounds. absent: Tenderness - Extremities Exam Extremities Exam: Normal Capillary Refill. absent: Calf Tenderness, Normal Inspection (L/leg covered with dressing clean, dry. 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 L/ankle cellulitis and Hematoma S/P I&D by podiatry team WoundCx and Bx growing Gram+ cocci WCx staph aureus sensitive to Vanco Repeat BCx neg Cont Meropenen(day 1) and Vanco IV (day 7): Abx managed by ID(Dr Stevens) Afebrile Uric Acid WNL 3.9 RICE treatment pain management consulted. Cont current treatment plan.(morphine, lyrica, toradol, tramadol) Bacteremia WBC continue trending down Initial BCx growing gram + cocci Cont IV abx as above PICC line plced: per ID 4-6 IV abx. Will discus with ID about home abx plan since patient anticipated DC is tomorrow. Will cont following ID recs Repeat lactic acid WNL Abnormal lab hematology elevated MCV, MCH, Plt. Low RBC hep panel neg PT,INR WNL folate, vit b12, WNL CRP, ESR elevated Kay's Disease Dose increased to 1.5mg daily due to inpatient hosp continue with PO dexamethasone and flucortef will cont monitoring Hypothyroidism TSH 7.1 c/w levothyroxine Prophylactic measures Ppx DVT -Levaquin 40mg daily(Discussed with Podiatry team)
--- NOTE | 2016-07-30 17:28 | CP.PCM.PN ---
Subjective - Date & Time of Evaluation Date of Evaluation: 07/30/16 Time of Evaluation: 17:20 - Subjective Subjective: I D NOTE HAVE REVIEWED TREATMENT C [facility] AND PREVIOUSLY NOTED NEEDS TOTAL OF 6 WEEKS OF ANTIBIOTIC TREATMENT HAVE REVIEWED LITERATURE ALONG c PREVIOUS CASES, INCLUDING THOSE C HARDWARE(TKR AND THR) C ALF PO ZYVOX AND NOTED EXCELLENT RESULTS.THIS INCLUDES MULTIPLE CASES THAT I HAVE TREATED AND FOLLOWED PLAN:CONTINUE RX AFTER DISCHARGE C ZYVOX 600MG PO BID HAVE WEEKLY CBC C DIFF(CHHECKING PLATELETS WELL AND BMP Objective - Vital Signs/Intake and Output Vital Signs (last 24 hours): Temp Pulse Resp BP Pulse Ox 98 F 72 18 113/74 95 07/30/16 16:29 07/30/16 16:29 07/30/16 16:29 07/30/16 16:29 07/30/16 16:29 - Medications Medications: Current Medications Dexamethasone (Decadron) 1.5 mg PO DAILY [facility] Enoxaparin Sodium (Lovenox) 40 mg SC DAILY [facility] PRN Reason: Protocol Fludrocortisone Acetate (Florinef) 0.1 mg PO DAILY [facility] Last Admin: 07/30/16 08:48 Dose: 0.1 mg Vancomycin HCl 1 gm/ Sodium (Chloride) 250 mls @ 166.667 mls/hr IVPB Q12 [facility] Last Admin: 07/30/16 08:55 Dose: 166.667 mls/hr Meropenem 1 gm/ Sodium (Chloride) 100 mls @ 100 mls/hr IVPB Q12 [facility] Last Admin: 07/30/16 08:55 Dose: 100 mls/hr Ketorolac Tromethamine (Toradol) 30 mg IVP Q6 PRN PRN Reason: Pain, Mild (1-3) Last Admin: 07/30/16 11:44 Dose: 30 mg Levothyroxine Sodium (Synthroid) 125 mcg PO DAILY@0630 [facility] Last Admin: 07/30/16 05:59 Dose: 125 mcg Morphine Sulfate (Morphine) 2 mg IVP Q4 PRN PRN Reason: Pain, severe (8-10) Last Admin: 07/30/16 15:12 Dose: 2 mg Pregabalin (Lyrica) 50 mg PO BID [facility] Last Admin: 07/30/16 08:53 Dose: 50 mg Tramadol HCl (Ultram) 50 mg PO Q4 PRN PRN Reason: Pain, moderate (4-7) Last Admin: 07/30/16 14:32 Dose: 50 mg - Labs Labs: 07/28/16 06:00 07/28/16 06:00 PT 10.0 SECONDS (9.6-11.2) 07/28/16 06:00 INR 0.96 (0.92-1.08) 07/28/16 06:00 APTT 25.0 SECONDS (23.3-32.5) 07/28/16 06:00
[2016-07-30] MEDS: Enoxaparin 40 mg Syringe SC SCH (18:06)
[2016-07-31] MEDS: Levothyroxine 125 MCG TAB PO SCH (06:19)
[2016-07-31 07:09] LABS: BASO % 0.4 % (0.0-2.0); EOS # 0.3 K/uL (0.0-0.7); EOS % 2.4 % (0.0-4.0); HEMATOCRIT 29.6 % (34.0-47.0); LYMPH # 3.3 K/uL (1.0-4.3); LYMPH % 28.5 % (20.0-40.0); MEAN CELL VOLUME 101.8 fl (81.0-99.0); MEAN CORPUSCULAR HEMOGLOBIN 33.4 pg (27.0-31.0); MEAN CORPUSCULAR HGB CONC 32.8 g/dL (33.0-37.0); MEAN PLATELET VOLUME 7.7 fl (7.2-11.7); MONO # 0.9 K/uL (0.0-0.8); MONO % 7.9 % (0.0-10.0); NEUT # 6.9 K/uL (1.8-7.0); NEUT % 60.8 % (50.0-75.0); NRBC % 0.1 % (0.0-0.0); RED CELL DISTRIBUTION WIDTH 13.2 % (11.5-14.5); WHITE BLOOD COUNT 11.4 K/uL (4.8-10.8)
[2016-07-31 07:17] LABS: BLOOD UREA NITROGEN 15 mg/dl (7-17); CALCIUM 8.8 mg/dL (8.4-10.2); CARBON DIOXIDE 28 mmol/L (22-30); CHLORIDE 102 mmol/L (98-107); GFR AFRICAN-AMERICAN > 60; GLUCOSE,RANDOM 86 mg/dL (65-105); POTASSIUM 3.9 MMOL/L (3.6-5.0); SODIUM 140 mmol/l (132-148)
[2016-07-31 07:18] LABS: LYME DISEASE SCREEN <0.90 index
[2016-07-31 07:40] LABS: THYROID STIMULATING HORMONE 3.73 mIU/ML (0.46-4.68)
[2016-07-31] MEDS: Meropenem 1 GM in Sodium Chloride 0.9% 100 ML IVPB SCH ×2 (09:51→20:29)
--- NOTE | 2016-07-31 11:14 | CP.PCM.PN ---
Subjective - Date & Time of Evaluation Date of Evaluation: 07/31/16 Time of Evaluation: 07:40 - Subjective Subjective: 46 y/o F admitted for L/ankle hematoma and cellulitis seen at bedside in not acute distress. PAtient states she feels much better, pain is well controlled with current meds. She denies nausea, vomiting, SOB, calf pain, CP. Patient is gonna be reevaluated by Podiatry today to discuss dispo. Objective - Vital Signs/Intake and Output Vital Signs (last 24 hours): Temp Pulse Resp BP Pulse Ox 97.5 F L 74 20 111/77 97 07/31/16 08:42 07/31/16 08:42 07/31/16 08:42 07/31/16 08:42 07/31/16 08:42 - Medications Medications: Current Medications Dexamethasone (Decadron) 1.5 mg PO DAILY [facility] Last Admin: 07/31/16 09:50 Dose: 1.5 mg Enoxaparin Sodium (Lovenox) 40 mg SC DAILY [facility] PRN Reason: Protocol Last Admin: 07/30/16 18:06 Dose: 40 mg Fludrocortisone Acetate (Florinef) 0.1 mg PO DAILY [facility] Last Admin: 07/31/16 09:50 Dose: 0.1 mg Vancomycin HCl 1 gm/ Sodium (Chloride) 250 mls @ 166.667 mls/hr IVPB Q12 [facility] Last Admin: 07/31/16 09:52 Dose: 166.667 mls/hr Meropenem 1 gm/ Sodium (Chloride) 100 mls @ 100 mls/hr IVPB Q12 [facility] Last Admin: 07/31/16 09:51 Dose: 100 mls/hr Ketorolac Tromethamine (Toradol) 30 mg IVP Q6 PRN PRN Reason: Pain, Mild (1-3) Last Admin: 07/31/16 10:48 Dose: 30 mg Levothyroxine Sodium (Synthroid) 125 mcg PO DAILY@0630 [facility] Last Admin: 07/31/16 06:19 Dose: 125 mcg Morphine Sulfate (Morphine) 2 mg IVP Q4 PRN PRN Reason: Pain, severe (8-10) Last Admin: 07/31/16 06:52 Dose: 2 mg Pregabalin (Lyrica) 50 mg PO BID [facility] Last Admin: 07/31/16 09:49 Dose: 50 mg Tramadol HCl (Ultram) 50 mg PO Q4 PRN PRN Reason: Pain, moderate (4-7) Last Admin: 07/31/16 09:48 Dose: 50 mg - Labs Labs: 07/31/16 05:55 07/31/16 05:55 PT 10.0 SECONDS (9.6-11.2) 07/28/16 06:00 INR 0.96 (0.92-1.08) 07/28/16 06:00 APTT 25.0 SECONDS (23.3-32.5) 07/28/16 06:00 - Constitutional Appears: Non-toxic, No Acute Distress - Eye Exam Eye Exam: PERRL - ENT Exam ENT Exam: Mucous Membranes Moist - Respiratory Exam Respiratory Exam: Clear to Ausculation Bilateral, NORMAL BREATHING PATTERN - Cardiovascular Exam Cardiovascular Exam: REGULAR RHYTHM, +S1, +S2. absent: Murmur - GI/Abdominal Exam GI & Abdominal Exam: Soft, Normal Bowel Sounds. absent: Distended - Extremities Exam Extremities Exam: Normal Capillary Refill. absent: Normal Inspection (Cont non wt bearing. L/ankle covered with dressing, clean and dry. NO signs of vascular compromise) - Neurological Exam Neurological Exam: Alert, Awake, Oriented x3 - Psychiatric Exam Psychiatric exam: Normal Affect, Normal Mood - Skin Skin Exam: Warm Assessment and Plan - Assessment and Plan (Free Text) Assessment: 46 y/o F with Hx of [place]'s disease and hypothyroidism admitted for LE cellulitis/hematoma. L/ankle cellulitis and Hematoma WoundCx and Bx growing Gram+ cocci WCx staph aureus sensitive to Vanco Repeat BCx neg Cont Meropenen(day 2) and Vanco IV (day 8): Abx managed by ID(Dr Stevens) Afebrile Uric Acid WNL 3.9 RICE treatment pain management consulted. Cont current treatment plan.(morphine, lyrica, toradol, tramadol) Bacteremia WBC continue trending down Initial BCx growing gram + cocci Cont IV abx as above PICC line plced: As per ID 4-[address] weeks abx. As per Dr Stevens patient will benefits from Zyvox PO instead of IV abx Will cont following ID recs Repeat lactic acid WNL Abnormal lab hematology elevated MCV, MCH, Plt. Low RBC hep panel neg PT,INR WNL folate, vit b12, WNL CRP, ESR elevated Virgil's Disease Dose increased to 1.5mg daily due to inpatient hosp continue with PO dexamethasone and flucortef will cont monitoring Hypothyroidism TSH 7.1 c/w levothyroxine Prophylactic measures Ppx DVT -Lovenox 40mg daily(Discussed with Podiatry team)
[2016-07-31] MEDS: Enoxaparin 40 mg Syringe SC SCH (13:31)
--- NOTE | 2016-07-31 18:20 | CP.PCM.PN ---
Subjective - Date & Time of Evaluation Date of Evaluation: 07/31/16 Time of Evaluation: 08:15 - Subjective Subjective: 46 y/o female seen at bedside POD#4 s/p left ankle incision and drainage (DOS 03/03) secondary to left ankle hematoma. Pt sleeping on arrival this morning, easily roused. States she had minor pain overnight controlled with analgesics. Pt grades pain a "3/10" overnight at peak. Pt denies overnight f/c/cp/sob/n/v. Objective - Vital Signs/Intake and Output Vital Signs (last 24 hours): Temp Pulse Resp BP Pulse Ox 98.2 F 76 20 102/69 97 07/31/16 16:27 07/31/16 16:27 07/31/16 16:27 07/31/16 16:27 07/31/16 16:27 - Medications Medications: Current Medications Dexamethasone (Decadron) 1.5 mg PO DAILY [facility] Last Admin: 07/31/16 09:50 Dose: 1.5 mg Enoxaparin Sodium (Lovenox) 40 mg SC DAILY [facility] PRN Reason: Protocol Last Admin: 07/31/16 13:31 Dose: 40 mg Ferrous Gluconate (Fergon) 324 mg PO BID [facility] Last Admin: 07/31/16 17:06 Dose: 324 mg Fludrocortisone Acetate (Florinef) 0.1 mg PO DAILY [facility] Last Admin: 07/31/16 09:50 Dose: 0.1 mg Vancomycin HCl 1 gm/ Sodium (Chloride) 250 mls @ 166.667 mls/hr IVPB Q12 [facility] Last Admin: 07/31/16 09:52 Dose: 166.667 mls/hr Meropenem 1 gm/ Sodium (Chloride) 100 mls @ 100 mls/hr IVPB Q12 [facility] Last Admin: 07/31/16 09:51 Dose: 100 mls/hr Ketorolac Tromethamine (Toradol) 30 mg IVP Q6 PRN PRN Reason: Pain, Mild (1-3) Last Admin: 07/31/16 10:48 Dose: 30 mg Levothyroxine Sodium (Synthroid) 125 mcg PO DAILY@0630 [facility] Last Admin: 07/31/16 06:19 Dose: 125 mcg Morphine Sulfate (Morphine) 2 mg IVP Q4 PRN PRN Reason: Pain, severe (8-10) Last Admin: 07/31/16 13:40 Dose: 2 mg Pregabalin (Lyrica) 50 mg PO BID [facility] Last Admin: 07/31/16 17:13 Dose: 50 mg Tramadol HCl (Ultram) 50 mg PO Q4 PRN PRN Reason: Pain, moderate (4-7) Last Admin: 07/31/16 09:48 Dose: 50 mg - Labs Labs: 07/31/16 05:55 07/31/16 05:55 PT 10.0 SECONDS (9.6-11.2) 07/28/16 06:00 INR 0.96 (0.92-1.08) 07/28/16 06:00 APTT 25.0 SECONDS (23.3-32.5) 07/28/16 06:00 - Constitutional Appears: Well, Non-toxic, No Acute Distress - Extremities Exam Additional comments: Left leg focused. Dressing clean, dry, and intact with sanguinous exudate contained to inner dressings. VASC: DP and PT pulses are weakly palpable PT graded 2/4 DP as 1/4 secondary to edema. Capillary refill time noted to all 5 digits to be <3 seconds. Moderate non-pitting edema noted extending from distal level of ankle joint to proximal level of digits, more focal edema noted distally than proximally. Mild callor to left lower leg and foot. DERM: Medial ankle abscess defect measuring 2.7x2x 2cm noted. No active bleeders noted. Site absent signs of infection. Anterior and lateral incision sites are well approximated, and all sutures remain intact, no drainage from these 2 incisions. Skin tension to leg and ankle greatly reduced. Well healed hallux and 2nd digit cicatrix sites noted. NERUO: Protective sensation is grossly intact. ORTHO: Medal muscle strength graded 5/5 in all 4 major muscle groups, tenderness on palpation and ankle joint ROM . Minor end range of motion ankle joint limitation. No gross deformities noted. - Neurological Exam Neurological Exam: Alert, Awake, Oriented x3 - Psychiatric Exam Psychiatric exam: Normal Affect, Normal Mood Assessment and Plan - Assessment and Plan (Free Text) Assessment: 46 year old female POD#4 s/p left ankle hematoma incision and drainage procedures (DOS: 07/27/16). Plan: Pt evaluated and treated. Discussed with attending, Dr. Finnegan. Charts, labs, and vitals reviewed. Afebrile. -Pain control per Pain management. -Flushed medial redundant abscess with sterile saline. Re-packed area with 1/ 2inch plain packing, dressed with saline soaked 4x4, DSD, kerlix and applied Figueroa compression. -Pt to remain non-weightbearing to left leg. -Cytology results -shows no crystal, or malignant cells. -Intra-operative cultures- negative for growth. -DVT Prophylaxis- Lovenox 40mg. Podiatry will continue to follow patient while inhouse.
[2016-08-01] MEDS: Levothyroxine 125 MCG TAB PO SCH (06:17)
[2016-08-01 07:13] LABS: BASO # 0.1 K/uL (0.0-0.2); BASO % 1.3 % (0.0-2.0); EOS # 0.2 K/uL (0.0-0.7); EOS % 2.2 % (0.0-4.0); HEMATOCRIT 28.9 % (34.0-47.0); LYMPH # 2.8 K/uL (1.0-4.3); LYMPH % 29.4 % (20.0-40.0); MEAN CELL VOLUME 101.2 fl (81.0-99.0); MEAN CORPUSCULAR HEMOGLOBIN 34.7 pg (27.0-31.0); MEAN CORPUSCULAR HGB CONC 34.2 g/dL (33.0-37.0); MEAN PLATELET VOLUME 7.9 fl (7.2-11.7); MONO # 0.7 K/uL (0.0-0.8); MONO % 7.7 % (0.0-10.0); NEUT # 5.7 K/uL (1.8-7.0); NEUT % 59.4 % (50.0-75.0); RED CELL DISTRIBUTION WIDTH 13.3 % (11.5-14.5); WHITE BLOOD COUNT 9.6 K/uL (4.8-10.8)
[2016-08-01 07:28] LABS: BLOOD UREA NITROGEN 15 mg/dl (7-17); CALCIUM 8.7 mg/dL (8.4-10.2); CARBON DIOXIDE 27 mmol/L (22-30); CHLORIDE 107 mmol/L (98-107); GFR AFRICAN-AMERICAN > 60; GLUCOSE,RANDOM 88 mg/dL (65-105); SODIUM 142 mmol/l (132-148)
[2016-08-01 07:50] VITALS: RESP 18; O2SAT 97
--- NOTE | 2016-08-01 08:47 | CP.PCM.PN ---
Subjective - Date & Time of Evaluation Date of Evaluation: 08/01/16 Time of Evaluation: 08:47 - Subjective Subjective: 46 y/o female seen at resting comfortably at bedside POD#5 s/p left ankle incision and drainage (DOS 07/27/16) secondary to left ankle hematoma. States she had minor pain overnight controlled with analgesics. Patient admits it is painful during dressing changes. Pt denies overnight f/c/cp/sob/n/v. Objective - Vital Signs/Intake and Output Vital Signs (last 24 hours): Temp Pulse Resp BP Pulse Ox 98 F 75 18 113/79 97 08/01/16 07:49 08/01/16 07:49 08/01/16 07:49 08/01/16 07:49 08/01/16 07:49 - Medications Medications: Current Medications Dexamethasone (Decadron) 1.5 mg PO DAILY [facility] Last Admin: 07/31/16 09:50 Dose: 1.5 mg Enoxaparin Sodium (Lovenox) 40 mg SC DAILY [facility] PRN Reason: Protocol Last Admin: 07/31/16 13:31 Dose: 40 mg Ferrous Gluconate (Fergon) 324 mg PO BID [facility] Last Admin: 07/31/16 17:06 Dose: 324 mg Fludrocortisone Acetate (Florinef) 0.1 mg PO DAILY [facility] Last Admin: 07/31/16 09:50 Dose: 0.1 mg Vancomycin HCl 1 gm/ Sodium (Chloride) 250 mls @ 166.667 mls/hr IVPB Q12 [facility] Last Admin: 07/31/16 22:00 Dose: 166.667 mls/hr Meropenem 1 gm/ Sodium (Chloride) 100 mls @ 100 mls/hr IVPB Q12 [facility] Last Admin: 07/31/16 20:29 Dose: 100 mls/hr Ketorolac Tromethamine (Toradol) 30 mg IVP Q6 PRN PRN Reason: Pain, Mild (1-3) Last Admin: 07/31/16 21:57 Dose: 30 mg Levothyroxine Sodium (Synthroid) 125 mcg PO DAILY@0630 [facility] Last Admin: 08/01/16 06:17 Dose: 125 mcg Morphine Sulfate (Morphine) 2 mg IVP Q4 PRN PRN Reason: Pain, severe (8-10) Last Admin: 07/31/16 13:40 Dose: 2 mg Pregabalin (Lyrica) 50 mg PO BID [facility] Last Admin: 07/31/16 17:13 Dose: 50 mg Tramadol HCl (Ultram) 50 mg PO Q4 PRN PRN Reason: Pain, moderate (4-7) Last Admin: 08/01/16 06:23 Dose: 50 mg - Labs Labs: 08/01/16 05:55 08/01/16 05:55 PT 10.0 SECONDS (9.6-11.2) 07/28/16 06:00 INR 0.96 (0.92-1.08) 07/28/16 06:00 APTT 25.0 SECONDS (23.3-32.5) 07/28/16 06:00 - Constitutional Appears: Well, Non-toxic, No Acute Distress - Extremities Exam Additional comments: Left leg focused. Dressing clean, dry, and intact VASC: DP and PT pulses are weakly palpable PT graded 2/4 DP as 1/4 secondary to edema. Capillary refill time noted to all 5 digits to be <3 seconds. Moderate non-pitting edema noted extending from distal level of ankle joint to proximal level of digits, more focal edema noted distally than proximally. Mild callor to left lower leg and foot. DERM: Medial ankle abscess defect measuring 2.7x2x 2cm noted. No active bleeders noted. Site absent signs of infection. Anterior and lateral incision sites are well approximated, and all sutures remain intact, no drainage from these 2 incisions. Skin tension to leg and ankle greatly reduced. Well healed hallux and 2nd digit cicatrix sites noted. NERUO: Protective sensation is grossly intact. ORTHO: Medal muscle strength graded 5/5 in all 4 major muscle groups, tenderness on palpation and ankle joint ROM. Minor end range of motion ankle joint limitation. No gross deformities noted. - Neurological Exam Neurological Exam: Alert, Awake, Oriented x3 - Psychiatric Exam Psychiatric exam: Normal Affect, Normal Mood Assessment and Plan - Assessment and Plan (Free Text) Assessment: 46 year old female POD#5 s/p left ankle hematoma incision and drainage procedures (DOS: 07/27/16). Plan: Patient examined and evaluated Discussed with attending, Dr. Finnegan. Charts, labs, and vitals reviewed. Afebrile. Pain control per Pain management. Flushed medial redundant abscess with sterile saline. Re-packed area with 1/ 2inch plain packing, dressed with saline soaked 4x4, DSD, kerlix and applied Figueroa compression. Pt to remain non-weightbearing to left leg. Cytology results -shows no crystal, or malignant cells. Intra-operative cultures- negative for growth. DVT Prophylaxis- Lovenox 40mg. Patient for D/C tomorrow on oral abx Podiatry will continue to follow patient while inhouse.
[2016-08-01] MEDS: Enoxaparin 40 mg Syringe SC SCH (09:08)
[2016-08-01] MEDS: Meropenem 1 GM in Sodium Chloride 0.9% 100 ML IVPB SCH ×2 (09:08→20:20)
--- NOTE | 2016-08-01 10:43 | CP.PCM.PN ---
Subjective - Date & Time of Evaluation Date of Evaluation: 08/01/16 Time of Evaluation: 07:25 - Subjective Subjective: 46 y/o F admitted for L/ankle hematoma with associated cellulitis seen at bedside comfortable in not acute distress. Patient c/o pulling sensation in the area of the wound sometimes, well controlled with current pain meds. Denies vomiting, nausea, CP, calf pain, SOB. Patient will be reevaluated by Dr Finnegan tomorrow morning to determined final dispo. Objective - Vital Signs/Intake and Output Vital Signs (last 24 hours): Temp Pulse Resp BP Pulse Ox 98 F 75 18 113/79 97 08/01/16 07:49 08/01/16 07:49 08/01/16 07:49 08/01/16 07:49 08/01/16 07:49 - Medications Medications: Current Medications Dexamethasone (Decadron) 1.5 mg PO DAILY [facility] Last Admin: 08/01/16 09:06 Dose: 1.5 mg Enoxaparin Sodium (Lovenox) 40 mg SC DAILY [facility] PRN Reason: Protocol Last Admin: 08/01/16 09:08 Dose: 40 mg Ferrous Gluconate (Fergon) 324 mg PO BID [facility] Last Admin: 07/31/16 17:06 Dose: 324 mg Fludrocortisone Acetate (Florinef) 0.1 mg PO DAILY [facility] Last Admin: 08/01/16 09:07 Dose: 0.1 mg Vancomycin HCl 1 gm/ Sodium (Chloride) 250 mls @ 166.667 mls/hr IVPB Q12 [facility] Last Admin: 08/01/16 09:10 Dose: 166.667 mls/hr Meropenem 1 gm/ Sodium (Chloride) 100 mls @ 100 mls/hr IVPB Q12 [facility] Last Admin: 08/01/16 09:08 Dose: 100 mls/hr Ketorolac Tromethamine (Toradol) 30 mg IVP Q6 PRN PRN Reason: Pain, Mild (1-3) Last Admin: 07/31/16 21:57 Dose: 30 mg Levothyroxine Sodium (Synthroid) 125 mcg PO DAILY@0630 [facility] Last Admin: 08/01/16 06:17 Dose: 125 mcg Morphine Sulfate (Morphine) 2 mg IVP Q4 PRN PRN Reason: Pain, severe (8-10) Last Admin: 08/01/16 09:02 Dose: 2 mg Pregabalin (Lyrica) 50 mg PO BID [facility] Last Admin: 08/01/16 09:16 Dose: 50 mg Tramadol HCl (Ultram) 50 mg PO Q4 PRN PRN Reason: Pain, moderate (4-7) Last Admin: 08/01/16 06:23 Dose: 50 mg - Labs Labs: 08/01/16 05:55 08/01/16 05:55 PT 10.0 SECONDS (9.6-11.2) 07/28/16 06:00 INR 0.96 (0.92-1.08) 07/28/16 06:00 APTT 25.0 SECONDS (23.3-32.5) 07/28/16 06:00 - Constitutional Appears: Non-toxic, No Acute Distress - Head Exam Head Exam: NORMAL INSPECTION - Eye Exam Pupil Exam: PERRL - ENT Exam ENT Exam: Mucous Membranes Moist - Respiratory Exam Respiratory Exam: Clear to Ausculation Bilateral, NORMAL BREATHING PATTERN. absent: Decreased Breath Sounds, Rales - Cardiovascular Exam Cardiovascular Exam: REGULAR RHYTHM, +S1, +S2. absent: Murmur - GI/Abdominal Exam GI & Abdominal Exam: Soft, Normal Bowel Sounds. absent: Tenderness - Extremities Exam Additional comments: Able to walk with crutches, still non wt bearing. 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 L/ankle cellulitis and Hematoma WoundCx and Bx growing Gram+ cocci WCx staph aureus sensitive to Vanco Repeat BCx neg Cont Meropenen(day 3) and Vanco IV (day 9): Abx managed by ID(Dr Stevens) Afebrile Uric Acid WNL 3.9 RICE treatment pain management consulted. Cont current treatment plan.(morphine, lyrica, toradol, tramadol) Bacteremia WBC continue trending down Initial BCx growing gram + cocci Cont IV abx as above As per ID 4-6 weeks abx. As per Dr Stevens patient will benefits from Zyvox PO after DC Will cont following ID recs Repeat lactic acid WNL Abnormal lab hematology elevated MCV, MCH, Plt. Low RBC hep panel neg PT,INR WNL folate, vit b12, WNL CRP, ESR elevated Gallatin's Disease Dose increased to 1.5mg daily due to inpatient hosp continue with PO dexamethasone and flucortef will cont monitoring Hypothyroidism TSH 7.1 c/w levothyroxine Prophylactic measures Ppx DVT -Lovenox 40mg daily(Discussed with Podiatry team)
[2016-08-01] MEDS: Oxycodone/Acetaminophen 5/325 mg Tab PO PRN ×2 (13:13→20:26)
[2016-08-01 16:30] VITALS: BP 116/78; PULSE 71; TEMP 98.3
[2016-08-02 08:16] LABS: IRON 53 ug/dL (37-170)
--- NOTE | 2016-08-02 18:20 | OP ---
PROCEDURE DATE: 08/02/2016 SURGEON: Dr. Finnegan. FIRE HYDRANT MECHANIC: Dr. Lala Dawkins, PGY-3. ANESTHESIOLOGIST: Dr. Wahl. ANESTHESIA: General anesthesia. PREOPERATIVE DIAGNOSIS: Left ankle and foot rule out septic arthritis versus abscess. POSTOPERATIVE DIAGNOSIS: Left ankle and foot rule out septic arthritis versus abscess. NAME OF PROCEDURE: Incision and drainage left ankle. INDICATION: The patient is a 46-year-old female with the above-mentioned diagnosis. The patient has been following up with Dr. Finnegan on an outpatient basis. She is a longstanding patient of Dr. Manrique in who recently began to notice that her left ankle and foot have become swollen and painful without any history of trauma or any indications of a bug bite. She has exhausted conservative treatment at this time and now requests surgical intervention. The patient signed a consent after careful explana tion of risks, benefits, complications, and alternatives for surgical procedure. No guarantees were given nor implied. PREPARATION: The patient was placed to the operating room and placed on the operating room table in a supine position. A well-padded thigh tourniquet was placed on the patient's left thigh. Once gene ral anesthesia was achieved, the left lower extremity was prepped and draped with the usual sterile m michelle and the procedure began. DESCRIPTION OF PROCEDURE: ____ . The incision was noted present from a previous bedside incision and drainage, using the same incision, a #15 blade was utilized to elongate the incision to make it long er both proximally and distally curving anterior to the medial malleoli. At this time, the incision was deepened through blunt dissection utilizing a curved hemostat. Superficial purulent drainage was noted and it was just at the original incision shape site. The hemostat was tracked in all directio ns possible to vacate any pockets of hematoma, of which none were found; however, hematoma was identi fied and it was let drain. At this time, a pulse irrigation was performed with gentamicin in the bag of 40 on the medial aspect of the ankle. At this time, attention was directed to the lateral aspect of the ankle where a similar linear incision was created anterior to the lateral malleolus measuring about 4 cm in length. The same was performed on this side and no purulent drainage was noted. Hemo stat was utilized to identify any pockets of hematoma and/or purulent drainage. No purulent drainage was identified; however, a hematoma was identified and it was let it drain. At this time, pulse lav age was utilized again with gentamicin to irrigate this area. The patient's foot and ankle were sque ezed to allow for as much hematoma to drain out as possible. The lateral incision was then sutured u tilizing 4-0 Prolene sutures in a simple stitch pattern with gaps in between to allow for further kristin inage. At the medial aspect the skin was very friable and sutured kept ripping through any part of t he medial incision due to the initial insult of the bedside incision and drainage. Therefore, the me dial side was packed open with quarter inch plain packing. At this time, the left ankle and foot wer e cleansed with saline and 4 x 4s, and the wound was dressed with sterile dressing, Kerlix and Gee. POSTOPERATIVE CONDITION: The patient tolerated the anesthesia and procedure well and was escorted to the recovery room with vital signs stable and neurovascular status intact to the left lower extremit y. This patient is to stay in the hospital for further evaluation and observation. Dr. Finnegan will be seeing this patient as an inpatient as well as the podiatry resident and she is to be nonweightbea ring as instructed. Lala Dawkins DPM Luis Finnegan DPM cc: [id number] TT: 08/02/2016 18:19:34 jn
--- NOTE | 2016-08-02 22:04 | CP.PCM.DIS ---
Provider - Provider Date of Admission: 07/24/16 02:47 Attending physician: Racheal Walden MD Primary care physician: Dell Gtz MD Consults: Podiatry(Dr Finnegan) ID(Dr Stevens) Time Spent in preparation of Discharge (in minutes): 40 Diagnosis - Discharge Diagnosis (1) Left ankle swelling Status: Acute Comment: Hematoma with cellulitis. Possible septic arthritis (2) Wilkin disease Status: Acute Comment: Stable. F/U as outpatient (3) Hypothyroid Status: Acute Comment: Stable. Cont home plan Hospital Course - Lab Results Lab Results: Micro Results 07/25/16 17:30 Blood-Venous Blood Culture - Final NO GROWTH AFTER 5 DAYS 07/25/16 17:30 Blood-Venous Gram Stain - Final TEST NOT PERFORMED 07/25/16 17:30 Blood-Venous Blood Culture - Final NO GROWTH AFTER 5 DAYS 07/25/16 17:30 Blood-Venous Gram Stain - Final TEST NOT PERFORMED 07/27/16 09:28 Ankle - Left Gram Stain - Final 07/27/16 09:28 Ankle - Left Wound Culture - Final No growth. 07/25/16 11:34 Ankle - Left Gram Stain - Final 07/25/16 11:34 Ankle - Left Wound Culture - Final Staphylococcus Aureus Most Recent Lab Values WBC 9.6 K/uL (4.8-10.8) 08/01/16 05:55 RBC 2.85 Mil/uL (3.80-5.20) L 08/01/16 05:55 Hgb 9.9 g/dL (12.0-16.0) L 08/01/16 05:55 Hct 28.9 % (34.0-47.0) L 08/01/16 05:55 MCV 101.2 fl (81.0-99.0) H 08/01/16 05:55 MCH 34.7 pg (27.0-31.0) H 08/01/16 05:55 MCHC 34.2 g/dL (33.0-37.0) 08/01/16 05:55 RDW 13.3 % (11.5-14.5) 08/01/16 05:55 Plt Count 639 K/uL (130-400) H 08/01/16 05:55 MPV 7.9 fl (7.2-11.7) 08/01/16 05:55 Gran % Cancelled 07/24/16 04:44 Neut % (Auto) 59.4 % (50.0-75.0) 08/01/16 05:55 Lymph % (Auto) 29.4 % (20.0-40.0) 08/01/16 05:55 [place] % (Auto) 7.7 % (0.0-10.0) 08/01/16 05:55 Eos % (Auto) 2.2 % (0.0-4.0) 08/01/16 05:55 Baso % (Auto) 1.3 % (0.0-2.0) 08/01/16 05:55 Gran # Cancelled 07/24/16 04:44 Neut # 5.7 K/uL (1.8-7.0) 08/01/16 05:55 Lymph # 2.8 K/uL (1.0-4.3) 08/01/16 05:55 [place] # 0.7 K/uL (0.0-0.8) 08/01/16 05:55 Eos # 0.2 K/uL (0.0-0.7) 08/01/16 05:55 Baso # 0.1 K/uL (0.0-0.2) 08/01/16 05:55 ESR 111 mm/hr (0-20) H 07/31/16 05:55 PT 10.0 SECONDS (9.6-11.2) 07/28/16 06:00 INR 0.96 (0.92-1.08) 07/28/16 06:00 APTT 25.0 SECONDS (23.3-32.5) 07/28/16 06:00 Sodium 142 mmol/l (132-148) 08/01/16 05:55 Potassium 4.0 MMOL/L (3.6-5.0) 08/01/16 05:55 Chloride 107 mmol/L (98-107) 08/01/16 05:55 Carbon Dioxide 27 mmol/L (22-30) 08/01/16 05:55 Anion Gap 13 (10-20) 08/01/16 05:55 BUN 15 mg/dl (7-17) 08/01/16 05:55 Creatinine 0.6 mg/dL (0.7-1.2) L 08/01/16 05:55 Est GFR ( Amer) > 60 08/01/16 05:55 Est GFR (Non-Af Amer) > 60 08/01/16 05:55 Random Glucose 88 mg/dL (65-105) 08/01/16 05:55 Lactic Acid 1.5 MMOL/L (0.7-2.1) 07/26/16 05:45 Uric Acid 3.9 mg/Dl (2.2-7.5) 07/25/16 11:50 Calcium 8.7 mg/dL (8.4-10.2) 08/01/16 05:55 Total Bilirubin 0.2 mg/dl (0.2-1.3) 07/28/16 06:00 AST 25 U/L (14-36) 07/28/16 06:00 ALT 31 U/L (9-52) 07/28/16 06:00 Alkaline Phosphatase 62 U/L (38-126) 07/28/16 06:00 C-React Prot High Sens > 15.00 mg/L (1.00-3.00) H 07/28/16 06:00 Total Protein 6.6 G/DL (6.3-8.2) 07/28/16 06:00 Albumin 3.4 g/dL (3.5-5.0) L 07/28/16 06:00 Globulin 3.2 gm/dL (2.2-3.9) 07/28/16 06:00 Albumin/Globulin Ratio 1.1 (1.0-2.1) 07/28/16 06:00 Vitamin B12 641 pg/mL (239-931) 07/26/16 05:45 25-OH Vitamin D Total 26.1 NG/ML (30.0-100.0) L 07/24/16 13:30 RBC Folate 518 ng/mL RBC (>280) 07/26/16 05:45 Procalcitonin < 0.05 NG/ML (0.19-0.49) L 07/31/16 05:55 TSH 3rd Generation 3.73 mIU/ML (0.46-4.68) 07/31/16 05:55 Vancomycin Trough 7.7 ug/mL (5.0-10.0) 07/27/16 18:27 Rheum Arthritis Panel Negative (NEGATIVE) 07/31/16 05:55 Teichoic Acid Antibody TNP 07/26/16 05:45 Lyme Disease Screen <0.90 index 07/30/16 18:15 Hepatitis A IgM Ab Negative (NEGATIVE) 07/26/16 05:45 Hep Bs Antigen Negative (NEGATIVE) 07/26/16 05:45 Hep B Core IgM Ab Negative (NEGATIVE) 07/26/16 05:45 Hepatitis C Antibody Negative (NEGATIVE) 07/26/16 05:45 HIV-1 Ab Rapid Screen Non reactive (NON REAC) 07/26/16 05:45 Anti-Staphylolysin O Negative (NEGATIVE) 07/26/16 05:45 - Hospital Course Hospital Course: 46 y/o F with PMHx of Luke's Disease, Hypothyrodism was admitted to hosp for L /ankle swelling and associated cellulitis. Patient underwent I&D by Ex [facility], was treated with IV abx and evaluated by ID who recommended total 6 weeks of abx for probable septic arthritis + bacteremia. Patient responded well to IV ABX and pain management while in the hosp and after stable and improved in general status and leg swelling, cleared by podiatry patient is discharge home with PO Zyvox for 5 more week BID as per ID recommendations. Discharge meds: Dexamethasone [Decadron] 1 mg PO DAILY Fludrocortisone [Florinef] 0.1 mg PO DAILY Levothyroxine Sodium 125 mcg PO DAILY predniSONE 20 mg PO DAILY Zyvox 600mg BID for 5 weeks Discharge Exam - Head Exam Head Exam: NORMAL INSPECTION - Eye Exam Eye Exam: PERRL - Respiratory Exam Respiratory Exam: Clear to PA & Lateral, NORMAL BREATHING PATTERN, UNREMARKABLE - Cardiovascular Exam Cardiovascular Exam: REGULAR RHYTHM, +S1, +S2. absent: Gallop - GI/Abdominal Exam GI & Abdominal Exam: Normal Bowel Sounds, Unremarkable - Extremities Exam Extremities exam: tenderness Additional comments: L/lower leg. No calf tenderness. Patient able ambulate with crutches. Dressing clean and dry. No signs of neurovascular compromise - Neurological Exam Neurological exam: Alert, Oriented x3, Reflexes Normal - Psychiatric Exam Psychiatric exam: Normal Affect, Normal Mood - Skin Skin Exam: Normal Color, Warm Discharge Plan - Follow Up Plan Condition: IMPROVED Disposition: HOME/ ROUTINE Patient education suggested?: Yes Instructions: Oxycodone/Acetaminophen (By mouth), Ketorolac (By mouth), Morphine (By injection), Pregabalin (By mouth), Peripherally Inserted Central Catheters and Midline Catheters (DC), Peripherally Inserted Central Catheters and Midline Catheters (GEN) Referrals: Dell Gtz MD [Primary Care Provider] -
== END 2016-08-02 19:21 | disposition home or self-care (01) | DRG 559 ==
LOC: H.ER 21:59 → H.ERHOLD 07-24 02:47 → H.MEDSURG1 07-24 05:30
PROVIDERS: ADMIT Family Medicine Geriatric Medicine; ATTEND Family Medicine Geriatric Medicine
PROC: 0Y9L3ZX Drainage of Left Ankle Region, Percutaneous Approach, Diagnostic (ICD-10-PCS; 2016-07-25)
PROC: 0HDNXZZ Extraction of Left Foot Skin, External Approach (ICD-10-PCS; 2016-07-25)
PROC: 02HV33Z Insertion of Infusion Device into Superior Vena Cava, Percutaneous Approach (ICD-10-PCS; 2016-07-26)
PROC: 0JDR0ZZ Extraction of Left Foot Subcutaneous Tissue and Fascia, Open Approach (ICD-10-PCS; 2016-07-27)
PROC: 3E0T3BZ Introduction of Anesthetic Agent into Peripheral Nerves and Plexi, Percutaneous Approach (ICD-10-PCS; 2016-07-27)
PROC: 0HDNXZZ Extraction of Left Foot Skin, External Approach (ICD-10-PCS; 2016-07-27)
PROC: 0Y9L0ZZ Drainage of Left Ankle Region, Open Approach (ICD-10-PCS; principal; 2016-07-27 07:45)
DX: M79.81 Nontraumatic hematoma of soft tissue (principal); M00.9 Pyogenic arthritis, unspecified; L03.116 Cellulitis of left lower limb; E27.1 Primary adrenocortical insufficiency; L97.329 Non-pressure chronic ulcer of left ankle with unspecified severity; B95.61 Methicillin susceptible Staphylococcus aureus infection as the cause of diseases classified elsewhere; E03.9 Hypothyroidism, unspecified; F17.210 Nicotine dependence, cigarettes, uncomplicated